=== PATIENT | male | born 1945 | race African-American/Black ===

== ENCOUNTER 2018-04-02 17:11 | Inpatient (IN) | payer MEDICARE, MEDICAID ==
[~2018-04-02] VITALS: Ht 170.2 cm; Wt 73.0 kg
[2018-04-02 21:00] VITALS: BP 140/72
--- NOTE | 2018-04-02 21:00 | NUR ---
NURSE NOTES: Patient direct admit from [facility].Patient A/A/OX4 . patient diagnoses Abdominal pain , R/O small bowel obstruction. this is an elderly 73 yrs old who came to the hospital where he has been with abdominal distention,abdominal pain , mild recurrent nausea and vomiting , has decrease bowel sounds and was to emergency room . the patient also found to have progressively increasing swelling on the left side of the leg patient vss, afibrile . No sob/ no n/v noted at this time .family friend dimas and notified patient location 302 bed 1.Patient personal belongings signed by patient and given to patient. . call light within reach . bed in low position at all times . bed alarm on . will continue to monitor patient .
[2018-04-02 21:01] VITALS: BP 144/85
--- NOTE | 2018-04-02 22:00 | History and Physical Report ---
DATE OF ADMISSION: 04/02/2018 HISTORY OF PRESENT ILLNESS: This is an elderly -aduo-swi male who came to the hospital where he has been with abdominal distention, abdominal pain, mild recurrent nausea and vomiting, has decreased bowel sounds, and was sent to the emergency room. The patient also was found to have progressively increasing swelling on the left side of the leg. He has no fever. No chills. PAST MEDICAL HISTORY: Hypertension, degenerative arthritis, CVA. MEDICATIONS: See the list. ALLERGIES: NKA. FAMILY HISTORY: Noncontributory. SOCIAL HISTORY: Lives at intermediate. Mostly bedbound. REVIEW OF SYSTEMS: Generalized weakness, tired, and fatigue. PHYSICAL EXAMINATION: VITAL SIGNS: His blood pressure is 130/70, pulse 74, and respirations 18. SKIN: Good skin turgor. HEENT: PERRLA. NAD. CHEST: Bilaterally clear. CARDIOVASCULAR: Regular rhythm. No gallop. No murmur. ABDOMEN: Soft. Decreased bowel sounds. Mild tenderness on touch. EXTREMITIES: Left leg swelling. ASSESSMENT: 1. Rule out small-bowel obstruction. 2. Acute gastroenteritis. 3. Leg edema, rule out DVT. 4. CVA. PLAN: We will admit on medical floor. Check KUB. NPO. NG tube suction. Consider GI consult and consider also Surgery consult, and check venous duplex. We will start on Lovenox. Follow up laboratory. Follow up the venous duplex. Sher Conway M.D. DR: Mell JOB#: [id number] CC:
--- NOTE | 2018-04-02 23:47 | NUR ---
NURSE NOTES: called Jonathan Benitez. med recon. NO Answers . will continue to monitor patient .
[2018-04-03] VITALS: BP 147/74
[2018-04-03] MEDS ORDERED: DOCUSATE SODIU100 M2 ORAL (02:20)
[2018-04-03] MEDS ORDERED: MOM30 ML ORAL (02:20)
[2018-04-03] MEDS ORDERED: NOVOLOG100 UNIT/4 SQ (02:20)
[2018-04-03] MEDS ORDERED: NORVASC10 MG ORAL (02:20)
[2018-04-03] MEDS ORDERED: COREG3.125 MG ORAL (02:20)
[2018-04-03] MEDS ORDERED: CLONIDINE1 EAC1 TD (02:20)
[2018-04-03 04:00] VITALS: BP 153/89
[2018-04-03 06:29] LABS: BASOPHILS % (AUTO) 1.1 % (0.0-2.0); EOSINOPHILS % (AUTO) 4.1 % (0.0-3.0); HEMATOCRIT 34.2 % (42.0-52.0); HEMOGLOBIN 11.3 G/DL (14.2-18.0); LYMPHOCYTES % (AUTO) 33.2 % (20.0-45.0); MEAN CORPUSCULAR VOLUME 85 FL (80-99); MONOCYTES % (AUTO) 7.5 % (1.0-10.0); NEUTROPHILS % (AUTO) 54.1 % (45.0-75.0); PLATELET COUNT 156 K/UL (150-450); RED BLOOD COUNT 4.01 M/UL (4.70-6.10); RED CELL DISTRIBUTION WIDTH 14.8 % (11.6-14.8); WHITE BLOOD COUNT 5.2 K/UL (4.8-10.8)
[2018-04-03 06:55] LABS: ALANINE AMINOTRANSFERASE 22 U/L (12-78); ALBUMIN 3.4 G/DL (3.4-5.0); ALBUMIN/GLOBULIN RATIO 0.9 (1.0-2.7); ALKALINE PHOSPHATASE 99 U/L (46-116); ANION GAP 10 mmol/L (5-15); ASPARTATE AMINO TRANSFERASE 15 U/L (15-37); BILIRUBIN,TOTAL 0.4 MG/DL (0.2-1.0); BLOOD UREA NITROGEN 26 mg/dL (7-18); CALCIUM 9.5 MG/DL (8.5-10.1); CARBON DIOXIDE 26 MMOL/L (21-32); CHLORIDE 107 MMOL/L (98-107); POTASSIUM 3.4 MMOL/L (3.5-5.1); SODIUM 143 MMOL/L (136-145)
--- NOTE | 2018-04-03 07:30 | NUR ---
HAND-OFF: Report given to CYNTHIA SHERMAN R.N.AND Endorsed the patient med Recon. Addendum: 04/03/18 at 0839 by RANDELL DOUGLAS LVN Dr. santiago seen patient.
[2018-04-03 08:00] VITALS: BP 160/85
[2018-04-03 08:17] LABS: APPEARANCE,URINE CLOUDY; BILIRUBIN, URINE NEGATIVE (NEGATIVE); COLOR,URINE PALE YELLOW; GLUCOSE, URINE (UA) NEGATIVE (NEGATIVE); KETONES,URINE NEGATIVE (NEGATIVE); LEUKOCYTE ESTERASE ,URINE 3+ (NEGATIVE); NITRITE,URINE NEGATIVE (NEGATIVE); PH,URINE 8 (4.5-8.0); PROTEIN,URINE NEGATIVE (NEGATIVE); UROBILINOGEN,URINE NORMAL MG/DL (0.0-1.0)
[2018-04-03] MEDS ORDERED: Enoxaparin 40mg Inj SUBQ SCH (09:00)
[2018-04-03] MEDS ORDERED: Milk of Magnesia 30ml Ud ORAL PRN (09:15)
--- NOTE | 2018-04-03 09:33 | NUR ---
RADIOLOGY DEPT ABDOMEN X-RAY DONE.-P.DYE
[2018-04-03] MEDS ORDERED: cefTRIAXone 1 GM in D5W 55 ML IVPB SCH (10:00)
--- NOTE | 2018-04-03 11:06 | GI Initial Consult Note ---
History of Present Illness General Date patient seen: Apr 03, 2018 Time patient seen: 11:02 Referring physician: KARLO WILD Reason for Consultation: Small bowel obstruction Present Illness HPI This is an elderly 73-year-old male who came to the hospital where he has been with abdominal distention, abdominal pain, mild recurrent nausea and vomiting, has decreased bowel sounds, and was sent to the emergency room. The patient also was found to have progressively increasing swelling on the left side of the leg. He has no fever. No chills. GI consulted for rule out small bowel obstruction. Patient was seen, awake alert and oriented no apparent distress with no active signs or symptoms of nausea or vomiting. Abdomen was assessed, noted to be very distended and and firm to palpation. According to the patient he has not been able to pass any flatus since yesterday. No documented BM. No noted NGT present. The patient denies any abdominal pain at this time. Labs reviewed noted for normocytic anemia and hypokalemia. Unknown history of endoscopic colonoscopy at this time. Home Meds Reported Medications Magnesium Hydroxide (Milk of Magnesia) 400 Mg/5 Ml Oral.susp, 30 ML ORAL TWICE A DAY, ML 04/03/18 Insulin Aspart (NOVOLOG) 100 Unit/1 Ml Cartridge, 100 UNIT SQ 04/03/18 Docusate Sodium (DOCUSATE SODIUM) 100 Mg Tablet, 250 MG ORAL TWICE A DAY, #60 TAB 0 Refills 04/03/18 Clonidine (CLONIDINE) 1 Each Patch.tdwk, 1 EACH TD, PATCH 04/03/18 Carvedilol (Coreg) 3.125 Mg Tablet, 3.125 MG ORAL EVERY 12 HOURS, TAB 04/03/18 Amlodipine Besylate (Norvasc) 10 Mg Tablet, 10 MG ORAL DAILY, TAB 04/03/18 Med list reviewed/reconciled: Yes Allergies: Coded Allergies: NO KNOWN ALLERGIES (Verified Allergy, Unknown, 04/02/18) Patient History History Provided By: Patient, Medical Record [facility] Narrative PAST MEDICAL HISTORY: Hypertension, degenerative arthritis, CVA. Social History: Denies: smoking, alcohol use, drug use, other Review of Systems All Other Systems: negative except mentioned in HPI Physical Exam Vital Signs Date Time Temp Pulse Resp B/P (MAP) Pulse Ox O2 Delivery O2 Flow Rate FiO2 04/02/18 21:00 Room Air 1/8/19 21:01 98.2 91 18 144/85 (104) 98 Sp02 EP Interpretation: reviewed, normal Labs Laboratory Tests Test 04/03/18 05:20 04/03/18 08:10 White Blood Count 5.2 K/UL (4.8-10.8) Red Blood Count 4.01 M/UL (4.70-6.10) L Hemoglobin 11.3 G/DL (14.2-18.0) L Hematocrit 34.2 % (42.0-52.0) L Mean Corpuscular Volume 85 FL (80-99) Mean Corpuscular Hemoglobin 28.2 PG (27.0-31.0) Mean Corpuscular Hemoglobin Concent 33.0 G/DL (32.0-36.0) Red Cell Distribution Width 14.8 % (11.6-14.8) Platelet Count 156 K/UL (150-450) Mean Platelet Volume 5.5 FL (6.5-10.1) L Neutrophils (%) (Auto) 54.1 % (45.0-75.0) Lymphocytes (%) (Auto) 33.2 % (20.0-45.0) Monocytes (%) (Auto) 7.5 % (1.0-10.0) Eosinophils (%) (Auto) 4.1 % (0.0-3.0) H Basophils (%) (Auto) 1.1 % (0.0-2.0) Sodium Level 143 MMOL/L (136-145) Potassium Level 3.4 MMOL/L (3.5-5.1) L Chloride Level 107 MMOL/L (98-107) Carbon Dioxide Level 26 MMOL/L (21-32) Anion Gap 10 mmol/L (5-15) Blood Urea Nitrogen 26 mg/dL (7-18) H Creatinine 1.0 MG/DL (0.55-1.30) Estimat Glomerular Filtration Rate mL/min (>60) Glucose Level 102 MG/DL (74-106) Hemoglobin A1c 6.2 % (4.3-6.0) H Calcium Level 9.5 MG/DL (8.5-10.1) Total Bilirubin 0.4 MG/DL (0.2-1.0) Aspartate Amino Transf (AST/SGOT) 15 U/L (15-37) Alanine Aminotransferase (ALT/SGPT) 22 U/L (12-78) Alkaline Phosphatase 99 U/L (46-116) Total Protein 7.0 G/DL (6.4-8.2) Albumin 3.4 G/DL (3.4-5.0) Globulin 3.6 g/dL Albumin/Globulin Ratio 0.9 (1.0-2.7) L Lipase 127 U/L (73-393) Urine Color Pale yellow Urine Appearance Cloudy Urine pH 8 (4.5-8.0) Urine Specific [place] 1.010 (1.005-1.035) Urine Protein Negative (NEGATIVE) Urine Glucose (UA) Negative (NEGATIVE) Urine Ketones Negative (NEGATIVE) Urine Blood 1+ (NEGATIVE) H Urine Nitrite Negative (NEGATIVE) Urine Bilirubin Negative (NEGATIVE) Urine Urobilinogen Normal MG/DL (0.0-1.0) Urine Leukocyte Esterase 3+ (NEGATIVE) H Urine RBC 2-4 /HPF (0 - 0) H Urine WBC 20-30 /HPF (0 - 0) H Urine Squamous Epithelial Cells Moderate /LPF (NONE/OCC) H Urine Bacteria Many /HPF (NONE) H General Appearance: well appearing, no apparent distress, alert, thin Head: normocephalic EENT: PERRL/EOMI, normal ENT inspection Neck: supple Respiratory: normal breath sounds, no respiratory distress Cardiovascular: normal rate Gastrointestinal: normal inspection, non tender, soft, normal bowel sounds, non -distended Rectal: deferred Genitourinary: deferred Musculoskeletal: normal inspection, back normal Neurologic: normal inspection, alert, oriented x3, responsive Psychiatric: normal inspection, judgement/insight normal, memory normal Skin: normal inspection, normal color, no rash, warm/dry, palpation normal, well hydrated Lymphatic: normal inspection, no adenopathy Current Medications Current Medications Medications (Trade) Dose Ordered Sig/Wilber Route PRN Reason Start Time Stop Time Status Last Admin Dose Admin Acetaminophen (Tylenol) 650 mg Q4H PRN ORAL Pain Scale (3-5) 04/02/18 21:30 05/02/18 21:29 04/03/18 02:40 Amlodipine Besylate (Norvasc) 10 mg DAILY ORAL 04/03/18 09:15 05/03/18 09:14 04/03/18 09:34 Carvedilol (Coreg) 3.125 mg EVERY 12 HOURS ORAL 04/03/18 09:15 05/03/18 09:14 04/03/18 09:34 Ceftriaxone Sodium 1 gm/ Dextrose 55 ml @ 110 mls/hr Q24H IVPB 04/03/18 10:00 04/10/18 09:59 Dextrose (Dextrose 50%) 25 ml Q30M PRN IV Hypoglycemia 04/03/18 09:00 05/03/18 08:59 Dextrose (Dextrose 50%) 50 ml Q30M PRN IV Hypoglycemia 04/03/18 09:00 05/03/18 08:59 Docusate Sodium (Colace) 250 mg BID ORAL 04/03/18 18:00 05/03/18 17:59 Enoxaparin Sodium (Lovenox) 40 mg Q12HR SUBQ 04/03/18 09:00 05/03/18 08:59 UNV Insulin Aspart (NovoLOG) BEFORE MEALS AND HS SUBQ 04/03/18 11:30 05/03/18 11:29 Magnesium Hydroxide (Mom) 30 ml BID PRN ORAL Constipation 04/03/18 09:15 05/03/18 09:14 Ondansetron HCl (Zofran) 4 mg Q4HR PRN IVP Nausea & Vomiting 04/02/18 21:30 05/02/18 21:29 Potassium Chloride 100 ml @ 110 mls/hr Q1H IVPB 04/03/18 10:00 04/03/18 11:55 04/03/18 09:35 Sodium Chloride 1,000 ml @ 75 mls/hr [id number] IV 04/02/18 21:30 05/02/18 21:29 04/03/18 00:04 GI: Plan Problems: (1) Anemia (2) Small bowel obstruction Plan Small bowel follow-through ordered Maintain n.p.o. plus IV fluids NGT insertion for bowel decompression Obtain surgical consultation We will follow with additional recommendations post imaging study anemia work up OB stool r/o GI bleed monitor H&H, prn transfusions ppi fu labs Discussed with Dr. Bernard. Thank you for this patient referral, we will follow. The patient was seen and examined at bedside and all new and available data was reviewed in the patients chart. I agree with the above findings, impression and plan. (Patient seen earlier today. Signature stamp does not reflect patient encounter time.). - MD Katharine VelasquezMount [facility] LANDSCAPING SUPERVISOR Apr 03, 2018 11:06
--- NOTE | 2018-04-03 12:34 | Diagnostic Imaging Report ---
APPROVED REPORT CPT Code: 74915 Present Symptoms Comments: Screening RIGHT LEG: Venous imaging reveals a patent deep venous system. There is no evidence of thrombus within the femoral, popliteal or tibial segments. The greater saphenous vein is also within normal limits. Doppler indicates normal spontaneous flow within these segments. LEFT LEG: Venous imaging reveals a patent deep venous system. There is no evidence of thrombus within the mid superficial femoral, distal popliteal or tibial segments. Doppler indicates normal spontaneous flow within these segments. The common, proximal superficial femoral and proximal popliteal veins not visualized due to contracture of the left hip and leg.
[2018-04-03] MEDS: NovoLOG Insulin Flexpen SUBQ SCH ×3 (12:36→20:31)
[2018-04-03] MEDS ORDERED: Potassium Chl 10mEq/100ml 110 ML IV SCH (14:00)
--- NOTE | 2018-04-03 14:23 | NUR ---
NURSE NOTES: PER PHARMACY IF PT HAS DVT, THEN LOVENOX 40MG IS TOO LOW OF A DOSE. RN MADE DR. WILD AWARE OF VENOUS DUPLEX RESULTS. MD WITH ORDER TO D/C LOVENOX. RN LEFT MESSAGE IF MD WANTS TO ORDER ANOTHER DVT PROPHYLAXIS, NO ANSWER BACK FROM MD.
[2018-04-03] MEDS: cefTRIAXone 1 GM in D5W 55 ML IVPB SCH (14:36)
[2018-04-03] MEDS ORDERED: Fleet's Mineral Oil Enema RECTAL ONE (14:45)
[2018-04-03] MEDS ORDERED: Isovue-300 100ml vial INJ PRN (15:45)
--- NOTE | 2018-04-03 15:56 | Diagnostic Imaging Report ---
Indication: Abdominal distention Technique: Supine view of the abdomen Comparison: none Findings: The colon is distended and gas-filled, especially distally. Considerable stool is seen in the distal colon and rectum. Considerable stool is also seen in the ascending colon. No definite gaseous distention of small bowel. There is lumbar scoliotic deformity and degenerative spondylosis Impression: Distended gas-filled colon. Suspect on the basis of functional changes or intestinal pseudoobstruction. However, distal obstruction not completely excludable. Consider CT to better assess Prominent feces, particularly distally, fecal impaction possible. Findings previously discussed by phone with GI nurse practitioner Johan Alcantar
[2018-04-03 16:00] VITALS: BP 151/92
--- NOTE | 2018-04-03 16:07 | NUR ---
NURSE NOTES: PER DARLENE (CHANNEL PROCESS SUPERVISOR), CANCEL NGT INSERTION AND ORDER FOR INSERTION OF RECTAL TUBE RECEIVED. ORDER FOR CT A/P WITH CONTRAST. NO NEXT OF KIN AVAILABLE. RN SPOKE TO MANISH AT [facility], AND STATES THEY HAVE NO RECORD OF NEXT OF KIN. RN LEFT MESSAGE FOR FAMILY FRIEND BALTA AND ASKED FOR CALL BACK. DARLENE MADE AWARE OF NO NEXT OF KIN. PER DARLENE, RN TO CALL Keiry WILD AND RECOMMEND SURGERY AND DR CARRILLO ON THE CASE. RN LEFT MESSAGE FOR DR. WILD'S EXCHANGE.
--- NOTE | 2018-04-03 16:12 | NUR ---
NURSE NOTES: RN LEFT MESSAGE FOR DR. CARRILLO REGARDING NEW CONSULT. RN SPOKE TO BALTA (FAMILY FRIEND) WHO STATES PT HAS A SISTER IN [place] AND HAS HER NUMBER AT HOME. PER BALTA, PT'S SISTER HAS NEVER FOLLOWED THROUGH. RN ASKED BALTA TO PLEASE OBTAIN NUMBER FOR SISTER AND CALL US BACK. BALTA STATES SHE WILL. CRN MADE AWARE.
--- NOTE | 2018-04-03 16:55 | NUR ---
NURSE NOTES: DR CARRILLO AT BEDSIDE WITH PT. DR WILD WITH NO NEW ORDER FOR CHANGE IN IVF. RN MADE DR WILD AWARE PT IS DIABETIC, CURRENT BS 127, WILL REMAIN NPO TONIGHT AND CURRENTLY ON 1/2 NS.
--- NOTE | 2018-04-03 17:05 | Consultation ---
History of Present Illness General Date patient seen: Apr 03, 2018 Referring physician: KARLO WILD Reason for Consultation: bowel obstruction Present Illness HPI 73 year old male with multiple medical comorbidities who presented with abdominal distention, pain, nausea, and emesis. on admission noted to have very distended abdomen that was firm. KUB demonstrated bowel dilatation. surgery called to evaluate and assist with care/management. patient seen, chart reviewed, patient examined. looks fairly comfortable without complaints but poor historian. denies pain. currently npo. no n/v/f/c. Allergies: Coded Allergies: NO KNOWN ALLERGIES (Verified Allergy, Unknown, 04/02/18) Medication History Scheduled Amlodipine Besylate (Norvasc), 10 MG ORAL DAILY, (Reported) Carvedilol (Coreg), 3.125 MG ORAL EVERY 12 HOURS, (Reported) Docusate Sodium (Docusate Sodium), 250 MG ORAL TWICE A DAY, (Reported) Magnesium Hydroxide (Milk of Magnesia), 30 ML ORAL TWICE A DAY, (Reported) Miscellaneous Medications Clonidine (Clonidine), 1 EACH TD, (Reported) Insulin Aspart (Novolog), 100 UNIT SQ, (Reported) Patient History Limited by: age History Provided By: Patient, Medical Record, PMD Healthcare decision maker Resuscitation status Full Code Advanced Directive on File Yes Past Medical/Surgical History Past Medical/Surgical History: (1) Anemia (2) Small bowel obstruction Review of Systems All Other Systems: negative except mentioned in HPI Physical Exam General Appearance: no apparent distress, alert Lines, tubes and drains: peripheral HEENT: mucous membranes moist Neck: normal inspection Respiratory/Chest: normal breath sounds, no respiratory distress, no accessory muscle use Cardiovascular/Chest: regular rhythm Abdomen: absent bowel sounds, distended, other Extremities: normal inspection Skin Exam: warm/dry Neurologic: alert Last 24 Hour Vital Signs Date Time Temp Pulse Resp B/P (MAP) Pulse Ox O2 Delivery O2 Flow Rate FiO2 04/03/18 09:34 82 160/85 04/03/18 09:34 82 160/85 04/03/18 09:00 Room Air 04/03/18 08:00 98.0 82 19 160/85 (110) 100 04/03/18 04:00 97.9 83 20 153/89 (110) 100 04/03/18 03:10 98.2 04/03/18 00:00 98.8 85 20 147/74 (98) 97 04/02/18 21:01 98.2 91 18 144/85 (104) 98 04/02/18 21:00 Room Air Intake and Output 04/02/18 04/03/18 19:00 07:00 Intake Total 690 ml Balance 690 ml Intake Oral 240 ml IV Total 450 ml # Voids 4 Laboratory Tests Test 04/03/18 05:20 04/03/18 08:10 White Blood Count 5.2 K/UL (4.8-10.8) Red Blood Count 4.01 M/UL (4.70-6.10) L Hemoglobin 11.3 G/DL (14.2-18.0) L Hematocrit 34.2 % (42.0-52.0) L Mean Corpuscular Volume 85 FL (80-99) Mean Corpuscular Hemoglobin 28.2 PG (27.0-31.0) Mean Corpuscular Hemoglobin Concent 33.0 G/DL (32.0-36.0) Red Cell Distribution Width 14.8 % (11.6-14.8) Platelet Count 156 K/UL (150-450) Mean Platelet Volume 5.5 FL (6.5-10.1) L Neutrophils (%) (Auto) 54.1 % (45.0-75.0) Lymphocytes (%) (Auto) 33.2 % (20.0-45.0) Monocytes (%) (Auto) 7.5 % (1.0-10.0) Eosinophils (%) (Auto) 4.1 % (0.0-3.0) H Basophils (%) (Auto) 1.1 % (0.0-2.0) Sodium Level 143 MMOL/L (136-145) Potassium Level 3.4 MMOL/L (3.5-5.1) L Chloride Level 107 MMOL/L (98-107) Carbon Dioxide Level 26 MMOL/L (21-32) Anion Gap 10 mmol/L (5-15) Blood Urea Nitrogen 26 mg/dL (7-18) H Creatinine 1.0 MG/DL (0.55-1.30) Estimat Glomerular Filtration Rate mL/min (>60) Glucose Level 102 MG/DL (74-106) Hemoglobin A1c 6.2 % (4.3-6.0) H Calcium Level 9.5 MG/DL (8.5-10.1) Total Bilirubin 0.4 MG/DL (0.2-1.0) Aspartate Amino Transf (AST/SGOT) 15 U/L (15-37) Alanine Aminotransferase (ALT/SGPT) 22 U/L (12-78) Alkaline Phosphatase 99 U/L (46-116) Total Protein 7.0 G/DL (6.4-8.2) Albumin 3.4 G/DL (3.4-5.0) Globulin 3.6 g/dL Albumin/Globulin Ratio 0.9 (1.0-2.7) L Lipase 127 U/L (73-393) Urine Color Pale yellow Urine Appearance Cloudy Urine pH 8 (4.5-8.0) Urine Specific [place] 1.010 (1.005-1.035) Urine Protein Negative (NEGATIVE) Urine Glucose (UA) Negative (NEGATIVE) Urine Ketones Negative (NEGATIVE) Urine Blood 1+ (NEGATIVE) H Urine Nitrite Negative (NEGATIVE) Urine Bilirubin Negative (NEGATIVE) Urine Urobilinogen Normal MG/DL (0.0-1.0) Urine Leukocyte Esterase 3+ (NEGATIVE) H Urine RBC 2-4 /HPF (0 - 0) H Urine WBC 20-30 /HPF (0 - 0) H Urine Squamous Epithelial Cells Moderate /LPF (NONE/OCC) H Urine Bacteria Many /HPF (NONE) H Height (Feet): 5 Height (Inches): 7.00 Weight (Pounds): 145 Medications Current Medications Medications (Trade) Dose Ordered Sig/Wilber Route PRN Reason Start Time Stop Time Status Last Admin Dose Admin Acetaminophen (Tylenol) 650 mg Q4H PRN ORAL Pain Scale (3-5) 04/02/18 21:30 05/02/18 21:29 04/03/18 02:40 Amlodipine Besylate (Norvasc) 10 mg DAILY ORAL 04/03/18 09:15 05/03/18 09:14 04/03/18 09:34 Barium Sulfate (Readi-Cat 2) 450 ml NOW PRN ORAL Radiology Procedure 04/03/18 15:15 04/05/18 15:02 Barium Sulfate (Readi-Cat 2) 450 ml NOW PRN ORAL Radiology Procedure 04/03/18 15:45 04/05/18 15:45 Carvedilol (Coreg) 3.125 mg EVERY 12 HOURS ORAL 04/03/18 09:15 05/03/18 09:14 04/03/18 09:34 Ceftriaxone Sodium 1 gm/ Dextrose 55 ml @ 110 mls/hr Q24H IVPB 04/03/18 15:00 04/10/18 14:59 04/03/18 14:36 Dextrose (Dextrose 50%) 25 ml Q30M PRN IV Hypoglycemia 04/03/18 09:00 05/03/18 08:59 Dextrose (Dextrose 50%) 50 ml Q30M PRN IV Hypoglycemia 04/03/18 09:00 05/03/18 08:59 Docusate Sodium (Colace) 250 mg BID ORAL 04/03/18 18:00 05/03/18 17:59 Insulin Aspart (NovoLOG) BEFORE MEALS AND HS SUBQ 04/03/18 11:30 05/03/18 11:29 Iopamidol (Isovue-300 100ml) 100 ml NOW PRN INJ Radiology Procedure 04/03/18 15:45 04/05/18 15:44 Magnesium Hydroxide (Mom) 30 ml BID PRN ORAL Constipation 04/03/18 09:15 05/03/18 09:14 Ondansetron HCl (Zofran) 4 mg Q4HR PRN IVP Nausea & Vomiting 04/02/18 21:30 05/02/18 21:29 Sodium Chloride 1,000 ml @ 75 mls/hr [id number] IV 04/02/18 21:30 05/02/18 21:29 04/03/18 12:32 Assessment/Plan Problem List: (1) Small bowel obstruction Assessment & Plan: 73 year old male with abdominal distention, n/v, abd pain. pain seems to be resolving. still very distended and firm. afebrile, HD stable, no leukocytosis. labs okay KUB noted pending SBFT results -STAT CT A/P -NPO -IV fluids -labs will follow with serial exams. thank you for this consultation. ICD Codes: K56.609 - Unspecified intestinal obstruction, unspecified as to partial versus complete obstruction SNOMED: [id number] Izaiah Cantrell Apr 03, 2018 17:05
[2018-04-03] MEDS ORDERED: Fleet's Enema 133ml RECTAL SCH ×2 (17:15)
--- NOTE | 2018-04-03 17:45 | Progress Note ---
DATE: 04/03/2018 SUBJECTIVE: This is an elderly male who came with abdominal pain. Negative constipation. The patient is going to a test. He is on liquid diet. He also has left leg edema and waiting for venous duplex. OBJECTIVE: GENERAL: He is sitting in the bed, otherwise comfortable. VITAL SIGNS: Blood pressure is 130/70, pulse 74, and respirations 18. SKIN: Good skin turgor. HEENT: NAD. CHEST: Bilaterally clear. CARDIOVASCULAR: Regular rhythm. No gallop. No murmur. ABDOMEN: Soft. Positive bowel sounds. Nontender. EXTREMITIES: Left leg edema. GENITOURINARY: Deferred. ASSESSMENT: 1. Abdominal pain. 2. Abdominal distention, rule out small-bowel obstruction. The patient is waiting for KUB result. 3. Leg edema. Waiting for venous duplex result. We will continue Lovenox. 4. He has UTI. We will continue Rocephin and check labs. 5. Potassium was low. We will replace potassium. Sher Conway M.D. DR: Mell JOB#: [id number] CC:
[2018-04-03] MEDS ORDERED: Docusate 250mg cap ORAL SCH (18:00)
--- NOTE | 2018-04-03 19:43 | NUR ---
HAND-OFF: Report given to Rosa SHAH RN.
--- NOTE | 2018-04-03 19:48 | NUR ---
NURSE NOTES: RN ENDORSED FLAP PRESSER DARLENE'S ORDER TO CONTINUE TO TRY INSERTING RECTAL TUBE. JESSI GARCIA MADE AWARE.
--- NOTE | 2018-04-03 19:50 | NUR ---
NURSE NOTES: patient received. patient in no acute distress at this time. patient complains of no pain at this time. patient awake and alert x4. IV intact patent and asymptomatic. bed in lowest position and locked. bed alarm on. call light within reach. will continue to monitor.
[2018-04-03 20:00] VITALS: BP 148/82
[2018-04-04] VITALS (7 sets, daily range): BP systolic 133–181; BP diastolic 80–112
--- NOTE | 2018-04-04 00:32 | NUR ---
NURSE NOTES: rectal tube inserted at 0030. tube draining and intact.
[2018-04-04] MEDS: NovoLOG Insulin Flexpen SUBQ SCH ×4 (06:30→20:50)
--- NOTE | 2018-04-04 07:05 | NUR ---
HAND-OFF: Report given to ZINA Queen.
[2018-04-04 07:32] LABS: BASOPHILS % (AUTO) 0.6 % (0.0-2.0); EOSINOPHILS % (AUTO) 2.8 % (0.0-3.0); HEMATOCRIT 37.8 % (42.0-52.0); HEMOGLOBIN 12.6 G/DL (14.2-18.0); LYMPHOCYTES % (AUTO) 31.4 % (20.0-45.0); MEAN CORPUSCULAR VOLUME 85 FL (80-99); MONOCYTES % (AUTO) 6.6 % (1.0-10.0); NEUTROPHILS % (AUTO) 58.7 % (45.0-75.0); PLATELET COUNT 185 K/UL (150-450); RED BLOOD COUNT 4.42 M/UL (4.70-6.10); RED CELL DISTRIBUTION WIDTH 15.2 % (11.6-14.8); WHITE BLOOD COUNT 4.1 K/UL (4.8-10.8)
--- NOTE | 2018-04-04 07:33 | NUR ---
NURSE NOTES: Received report from Jennifer. Patient asleep and call light within reach. Will continue to monitor.
[2018-04-04 07:58] LABS: ANION GAP 11 mmol/L (5-15); BLOOD UREA NITROGEN 19 mg/dL (7-18); CALCIUM 9.7 MG/DL (8.5-10.1); CARBON DIOXIDE 28 MMOL/L (21-32); CHLORIDE 106 MMOL/L (98-107); CREATININE 0.9 MG/DL (0.55-1.30); POTASSIUM 3.2 MMOL/L (3.5-5.1); SODIUM 145 MMOL/L (136-145)
--- NOTE | 2018-04-04 08:26 | Diagnostic Imaging Report ---
Indication: Abdominal distention Technique: Patient ingested oral water-soluble contrast, and serial overhead radiographs were obtained Comparison: none Findings: Director Audience Marketing image demonstrates markedly dilated distal colon, distal sigmoid measuring up to 19 cm in diameter. No definite wall thickening. There is questionable dilatation of the rectum by feces. Prominent small bowel mucosal pattern is evident on the chief wheelage clerk image. There is a right hip prosthesis After ingestion of contrast, there is study progression of contrast through the small bowel. The small bowel is nondilated, and mucosal pattern appears unremarkable. Contrast is seen within the colon by 2 hours and 34 minutes. Contrast is seen all the way into the rectum at 5 hours and 45 minutes. Impression: No evidence of small bowel obstruction Markedly distended colon, presumably functional in nature as there is no obstruction to forward progression of ingested contrast. No findings to suggest cecal volvulus. Findings previously discussed with GI nurse practitioner Johan Alcantar. Final images also reviewed in person with Dr. Cantrell
--- NOTE | 2018-04-04 09:17 | Diagnostic Imaging Report ---
Indication: Abdominal distention Technique: Spiral acquisitions obtained through the abdomen and pelvis. No oral contrast utilized, per emergency room physician request No IV contrast utilized, per referring physician request.. Multiplanar reconstructions were generated. Total dose length product 867.87 mGycm. CTDIvol(s) 14.56 mGy. Dose reduction achieved using automated exposure control Comparison: Reference made to small bowel series performed immediately prior Findings: The rectum and distal sigmoid colon are massively dilated, distal sigmoid measuring up to 10 cm in diameter. However, no obstructive lesion is demonstrated and ingested contrast from earlier small bowel series extends all the way to the anal verge. The proximal sigmoid is also dilated, although less so. The transverse colon is mildly dilated, and there is fairly normal caliber of the ascending colon. The cecum is somewhat prominent, however. The appendix is normal. No small bowel distention or small bowel wall thickening. The distal esophagus, stomach, duodenum are unremarkable. No evidence of diverticulosis or diverticulitis. No free or loculated intraperitoneal gas or fluid. No evidence of bowel wall pneumatosis. Lack of IV contrast limits assessment of the solid organs. An unusual structure is seen adjacent to the gallbladder fundus. This may represent a gallbladder fundal stone. However, appearance is somewhat tubular with a focus of central fat, raising the possibility that this represents a focal intussusception of small bowel. No gallbladder wall thickening. The liver is grossly unremarkable. The pancreas, spleen, adrenals, kidneys are all unremarkable. No retroperitoneal or mesenteric mass or adenopathy. No pelvic mass or adenopathy. The bladder is nondistended. There is surgical hardware in the right.. Both hips are contracted, and there is extensive degenerative change of the left hip and acetabulum. There is also deformity of the sacrum and lower lumbar spine. The included lung bases demonstrate very mild interstitial prominence. The heart is enlarged. Impression: Massively dilated distal colon, without evidence of obstructive pathology. Most likely functional in nature Unusual structure apparently adjacent to the gallbladder fundus. Possibly represents a gallbladder fundal stone, but somewhat tubular appearance with central fat raises the possibility that this represents a focal small bowel nonobstructive intussusception. Ultrasound may be useful to clarify Abnormal bilateral hips and pelvis, as described, with contractures, degenerative changes, and right hip surgical hardware Cardiomegaly Mild basilar pulmonary interstitial prominence, suspect on the basis of senescent changes but. Indicate a slight component of interstitial edema This agrees with the preliminary interpretation provided overnight by Dr. Holloway. Findings and recommendations also discussed by phone with Dr. Cantrell at the time of interpretation The CT scanner at [facility] is accredited by the [employer] and the scans are performed using protocols designed to limit radiation exposure to as low as reasonably achievable to attain images of sufficient resolution adequate for diagnostic evaluation.
[2018-04-04] MEDS ORDERED: Nulytely 4L ORAL SCH (10:00)
--- NOTE | 2018-04-04 11:00 | GI Progress Note ---
Assessment/Plan Problems: (1) Colon distention ICD Codes: K63.89 - Other specified diseases of intestine SNOMED: 141415826 (2) Anemia ICD Codes: D64.9 - Anemia, unspecified SNOMED: 089933497 Status: unchanged Status Narrative Discussed with Dr. Bernard Assessment/Plan Abdominal pelvis CT reviewed >> Massively dilated distal colon, without evidence of obstructive pathology. Most likely functional in nature. No noted small bowel obstruction. Will consider colonoscopy for colonic decompression. Maintain rectal tube 2 L GoLYTELY bowel flush Clear liquid diet, advance as tolerated prn transfusions ppi fu labs The patient was seen and examined at bedside and all new and available data was reviewed in the patients chart. I agree with the above findings, impression and plan. (Patient seen earlier today. Signature stamp does not reflect patient encounter time.). - Pineda Bernard MD Subjective Subjective Abdominal distention is improved Denies any abdominal pain States that he had a good bowel movement Objective Last 24 Hour Vital Signs Date Time Temp Pulse Resp B/P (MAP) Pulse Ox O2 Delivery O2 Flow Rate FiO2 04/04/18 10:11 89 181/65 04/04/18 10:11 89 181/65 04/04/18 08:00 98.8 89 20 181/105 (130) 100 04/04/18 04:00 97.7 85 18 180/98 (125) 100 04/04/18 00:00 97.6 91 19 160/89 (112) 100 04/03/18 21:00 Room Air 04/03/18 20:30 82 151/92 04/03/18 20:00 98.3 79 20 148/82 (104) 99 04/03/18 16:00 97.6 82 20 151/92 (111) 97 Intake and Output 04/03/18 04/04/18 18:59 06:59 Intake Total 430 ml 75 ml Output Total 950 ml Balance -520 ml 75 ml IV Total 430 ml 75 ml Output Urine Total 950 ml Laboratory Tests Test 04/04/18 06:15 White Blood Count 4.1 K/UL (4.8-10.8) L Red Blood Count 4.42 M/UL (4.70-6.10) L Hemoglobin 12.6 G/DL (14.2-18.0) L Hematocrit 37.8 % (42.0-52.0) L Mean Corpuscular Volume 85 FL (80-99) Mean Corpuscular Hemoglobin 28.4 PG (27.0-31.0) Mean Corpuscular Hemoglobin Concent 33.3 G/DL (32.0-36.0) Red Cell Distribution Width 15.2 % (11.6-14.8) H Platelet Count 185 K/UL (150-450) Mean Platelet Volume 6.3 FL (6.5-10.1) L Neutrophils (%) (Auto) 58.7 % (45.0-75.0) Lymphocytes (%) (Auto) 31.4 % (20.0-45.0) Monocytes (%) (Auto) 6.6 % (1.0-10.0) Eosinophils (%) (Auto) 2.8 % (0.0-3.0) Basophils (%) (Auto) 0.6 % (0.0-2.0) Sodium Level 145 MMOL/L (136-145) Potassium Level 3.2 MMOL/L (3.5-5.1) L Chloride Level 106 MMOL/L (98-107) Carbon Dioxide Level 28 MMOL/L (21-32) Anion Gap 11 mmol/L (5-15) Blood Urea Nitrogen 19 mg/dL (7-18) H Creatinine 0.9 MG/DL (0.55-1.30) Estimat Glomerular Filtration Rate mL/min (>60) Glucose Level 78 MG/DL (74-106) Calcium Level 9.7 MG/DL (8.5-10.1) Height (Feet): 5 Height (Inches): 7.00 Weight (Pounds): 145 General Appearance: WD/WN, no apparent distress, alert, thin Cardiovascular: normal rate Respiratory/Chest: normal breath sounds, no respiratory distress Abdominal Exam: normal bowel sounds, non tender, soft, distended Extremities: non-tender Ciro Alcantar NP Apr 04, 2018 10:59
--- NOTE | 2018-04-04 12:20 | NUR ---
NURSE NOTES: Potassium 3.2 and notified to GRINDER SET UP OPERATOR Johan. Ordered kcl 40 meq po one time. Noted and carried out.
[2018-04-04] MEDS: cefTRIAXone 1 GM in D5W 55 ML IVPB SCH (15:16)
[2018-04-04] MEDS ORDERED: 1/2 NS 1000ml IV ONE (15:32)
--- NOTE | 2018-04-04 15:57 | General Surgery Progress Note ---
General Surgery-Progress Note Subjective Additional Comments no acute events. CT noted. had BM. comfortable. labs okay. Objective Last 24 Hour Vital Signs Date Time Temp Pulse Resp B/P (MAP) Pulse Ox O2 Delivery O2 Flow Rate FiO2 04/04/18 12:34 169/98 04/04/18 12:00 98.5 83 20 169/98 (121) 100 04/04/18 10:11 89 181/65 04/04/18 10:11 89 181/65 04/04/18 09:00 Room Air 04/04/18 08:00 98.8 89 20 181/105 (130) 100 04/04/18 04:00 97.7 85 18 180/98 (125) 100 04/04/18 00:00 97.6 91 19 160/89 (112) 100 04/03/18 21:00 Room Air 04/03/18 20:30 82 151/92 04/03/18 20:00 98.3 79 20 148/82 (104) 99 04/03/18 16:00 97.6 82 20 151/92 (111) 97 I&O Intake and Output 04/03/18 04/04/18 18:59 06:59 Intake Total 430 ml 75 ml Output Total 950 ml Balance -520 ml 75 ml IV Total 430 ml 75 ml Output Urine Total 950 ml Drains: other Cardiovascular: RSR Respiratory: clear Abdomen: soft, distended, present bowel sounds Extremities: no cyanosis, other Laboratory Tests Test 04/04/18 06:15 White Blood Count 4.1 K/UL (4.8-10.8) L Red Blood Count 4.42 M/UL (4.70-6.10) L Hemoglobin 12.6 G/DL (14.2-18.0) L Hematocrit 37.8 % (42.0-52.0) L Mean Corpuscular Volume 85 FL (80-99) Mean Corpuscular Hemoglobin 28.4 PG (27.0-31.0) Mean Corpuscular Hemoglobin Concent 33.3 G/DL (32.0-36.0) Red Cell Distribution Width 15.2 % (11.6-14.8) H Platelet Count 185 K/UL (150-450) Mean Platelet Volume 6.3 FL (6.5-10.1) L Neutrophils (%) (Auto) 58.7 % (45.0-75.0) Lymphocytes (%) (Auto) 31.4 % (20.0-45.0) Monocytes (%) (Auto) 6.6 % (1.0-10.0) Eosinophils (%) (Auto) 2.8 % (0.0-3.0) Basophils (%) (Auto) 0.6 % (0.0-2.0) Sodium Level 145 MMOL/L (136-145) Potassium Level 3.2 MMOL/L (3.5-5.1) L Chloride Level 106 MMOL/L (98-107) Carbon Dioxide Level 28 MMOL/L (21-32) Anion Gap 11 mmol/L (5-15) Blood Urea Nitrogen 19 mg/dL (7-18) H Creatinine 0.9 MG/DL (0.55-1.30) Estimat Glomerular Filtration Rate mL/min (>60) Glucose Level 78 MG/DL (74-106) Calcium Level 9.7 MG/DL (8.5-10.1) Plan Problems: (1) Small bowel obstruction Assessment & Plan: 73 year old male with abdominal distention, n/v, abd pain. pain seems to be resolving. still very distended and firm. afebrile, HD stable, no leukocytosis. labs okay KUB noted SBFT noted CT noted - Massively dilated distal colon, without evidence of obstructive pathology. Most likely functional in nature Unusual structure apparently adjacent to the gallbladder fundus. Possibly represents a gallbladder fundal stone, but somewhat tubular appearance with central fat raises the possibility that this represents a focal small bowel nonobstructive intussusception. Ultrasound may be useful to clarify -plan for colonoscopic decompression by GI tomorrow -IV fluids -labs will follow with serial exams. thank you for this consultation. Izaiah Cantrell Apr 04, 2018 15:57
--- NOTE | 2018-04-04 18:45 | Progress Note ---
DATE: 04/04/2018 SUBJECTIVE: This is an elderly 73-year-old male, still has abdominal distention, abdominal pain, and looks in mild respiratory distress. No nausea, no vomiting but his stomach is getting bigger. Rectal tube was placed. Discussed with the surgeon. We are monitoring his . We also need to put NG tube, low to intermittent suction. OBJECTIVE: VITAL SIGNS: Blood pressure is 180/98, pulse 85, respiration is 18, and temperature 97.7. HEENT: NAD. NECK: Supple. CHEST: Bilateral crackles. CARDIOVASCULAR: Regular rhythm. No gallop. No murmur. ABDOMEN: Soft, but distended, decreased bowel sounds. EXTREMITIES: CCE. ASSESSMENT: 1. Volvulus. 2. Small bowel obstruction. 3. Uncontrolled high blood pressure. 4. Hypokalemia. 5. The patient is NPO. PLAN: 1. We will continue IV fluid. 2. NG tube suction. 3. Rectal tube. 4. Surgery and GI is on consult. 5. We will also put a lidocaine patch TTS one every week sleep for uncontrolled high blood pressure. 6. Discussed with the patient the option. 7. The patient is critically sick. Sher Conway M.D. DR: Theo JOB#: [id number] CC:
--- NOTE | 2018-04-04 19:40 | NUR ---
NURSE NOTES: Received report from ZINA Omalley and rounds done. Received pt in bed, awake, alert, denies pain, no distress noted. Hargrove and rectal tube to gravity. IV R FA # 22 patent and intact. IV fluid infusing as ordered. Bed in low position and locked, side rails up x 2, call light within reach. Will continue to monitor.
--- NOTE | 2018-04-04 19:40 | NUR ---
NURSE NOTES: Received report from ZINA Omalley and rounds done. Received pt lying in bed, A&OX4, denies any pain. No distress noted. Hargrove catheter in place draining yellow color output. Rectal tube leaking, kept pt clean and dry. Reinflated rectal tube secured. draining without any leakage noted. IV R FA # 20 patent and intact. IV fluid infusing as ordered. Bed in low position and locked, side rails up x 2, call light within reach. Will continue to monitor.
--- NOTE | 2018-04-04 19:54 | NUR ---
HAND-OFF: Report given to Sean Mejia RN.
--- NOTE | 2018-04-04 20:25 | NUR ---
NURSE NOTES: B/P 175/112, HR 98, pt denies any pain, no SOB, no distress noted. Will administer B/P med.
--- NOTE | 2018-04-04 21:44 | NUR ---
NURSE NOTES: Recheck B/P 158/97, HR 83. Pt asymptomatic, denies pain, no SOB, no distress noted. Will continue to monitor.
[2018-04-05] VITALS: BP 160/99
[2018-04-05 04:00] VITALS: BP 149/80
[2018-04-05] MEDS: NovoLOG Insulin Flexpen SUBQ SCH ×4 (06:30→20:55)
--- NOTE | 2018-04-05 07:04 | NUR ---
HAND-OFF: Report given to ZINA Omalley. Pt in stable condition.
[2018-04-05 07:32] LABS: BASOPHILS % (AUTO) 0.9 % (0.0-2.0); EOSINOPHILS % (AUTO) 3.4 % (0.0-3.0); HEMATOCRIT 35.2 % (42.0-52.0); HEMOGLOBIN 11.8 G/DL (14.2-18.0); LYMPHOCYTES % (AUTO) 27.7 % (20.0-45.0); MEAN CORPUSCULAR VOLUME 84 FL (80-99); MONOCYTES % (AUTO) 8.3 % (1.0-10.0); NEUTROPHILS % (AUTO) 59.8 % (45.0-75.0); PLATELET COUNT 175 K/UL (150-450); RED BLOOD COUNT 4.19 M/UL (4.70-6.10); RED CELL DISTRIBUTION WIDTH 14.7 % (11.6-14.8); WHITE BLOOD COUNT 5.1 K/UL (4.8-10.8)
--- NOTE | 2018-04-05 07:34 | NUR ---
NURSE NOTES: Received report from Sean Mejia RN. Patient a/o x 4 and having breakfast. Denies any pain and manzano catheter patent. Call light within reach. Will continue to monitor.
[2018-04-05 07:49] LABS: ANION GAP 11 mmol/L (5-15); BLOOD UREA NITROGEN 15 mg/dL (7-18); CALCIUM 9.3 MG/DL (8.5-10.1); CARBON DIOXIDE 25 MMOL/L (21-32); CHLORIDE 106 MMOL/L (98-107); SODIUM 141 MMOL/L (136-145)
[2018-04-05 07:53] LABS: POTASSIUM 2.7 MMOL/L (3.5-5.1)
[2018-04-05 08:00] VITALS: BP 146/78
--- NOTE | 2018-04-05 09:10 | NUR ---
NURSE NOTES: VOUCHER EXAMINER Johan notified for KCl 2.7 critical value at 0805 am. Ordered KCl 80 meq po one time. Noted and carried out.
--- NOTE | 2018-04-05 11:59 | GI Progress Note ---
Assessment/Plan Problems: (1) Colon distention ICD Codes: K63.89 - Other specified diseases of intestine SNOMED: 026879684 (2) Anemia ICD Codes: D64.9 - Anemia, unspecified SNOMED: 924159429 Status: stable, unchanged Status Narrative Discussed with Dr. Bernard. Assessment/Plan Abdominal pelvis CT reviewed >> Massively dilated distal colon, without evidence of obstructive pathology. Most likely functional in nature. No noted small bowel obstruction. Patient to be scheduled for colonoscopy next sunday for colonic decompression - NPO @ [place] day prior procedure. - hold all blood thinners night prior procedure. Maintain rectal tube electrolyte correction, will adjust IVFs 2 L GoLYTELY bowel flush FLD, advance as tolerated prn transfusions ppi fu labs The patient was seen and examined at bedside and all new and available data was reviewed in the patients chart. I agree with the above findings, impression and plan. (Patient seen earlier today. Signature stamp does not reflect patient encounter time.). - Pineda Bernard MD Subjective Subjective Abdominal distention is improved, but distention still present Denies any abdominal pain States that he had a good bowel movement Objective Last 24 Hour Vital Signs Date Time Temp Pulse Resp B/P (MAP) Pulse Ox O2 Delivery O2 Flow Rate FiO2 04/05/18 09:00 Room Air 04/05/18 08:46 81 146/78 04/05/18 08:46 81 146/78 04/05/18 08:00 97.8 81 18 146/78 (100) 98 04/05/18 04:00 98.1 77 18 149/80 (103) 98 04/05/18 00:00 97.0 84 17 160/99 (119) 99 04/04/18 21:45 83 158/97 (117) 04/04/18 21:00 Room Air 04/04/18 20:27 102 175/112 04/04/18 20:00 97.1 98 19 175/112 (133) 100 04/04/18 16:00 98.2 83 19 150/93 (112) 100 04/04/18 12:34 169/98 04/04/18 12:00 98.5 83 20 169/98 (121) 100 Intake and Output 04/04/18 04/05/18 19:00 07:00 Intake Total 2675 ml 1225 ml Output Total 300 ml 1100 ml Balance 2375 ml 125 ml Intake Oral 2600 ml 400 ml IV Total 75 ml 825 ml Output Urine Total 450 ml Stool Total 300 ml 650 ml # Voids 3 # Bowel Movements 3 Laboratory Tests Test 04/05/18 06:50 White Blood Count 5.1 K/UL (4.8-10.8) Red Blood Count 4.19 M/UL (4.70-6.10) L Hemoglobin 11.8 G/DL (14.2-18.0) L Hematocrit 35.2 % (42.0-52.0) L Mean Corpuscular Volume 84 FL (80-99) Mean Corpuscular Hemoglobin 28.2 PG (27.0-31.0) Mean Corpuscular Hemoglobin Concent 33.6 G/DL (32.0-36.0) Red Cell Distribution Width 14.7 % (11.6-14.8) Platelet Count 175 K/UL (150-450) Mean Platelet Volume 6.4 FL (6.5-10.1) L Neutrophils (%) (Auto) 59.8 % (45.0-75.0) Lymphocytes (%) (Auto) 27.7 % (20.0-45.0) Monocytes (%) (Auto) 8.3 % (1.0-10.0) Eosinophils (%) (Auto) 3.4 % (0.0-3.0) H Basophils (%) (Auto) 0.9 % (0.0-2.0) Sodium Level 141 MMOL/L (136-145) Potassium Level 2.7 MMOL/L (3.5-5.1) *L Chloride Level 106 MMOL/L (98-107) Carbon Dioxide Level 25 MMOL/L (21-32) Anion Gap 11 mmol/L (5-15) Blood Urea Nitrogen 15 mg/dL (7-18) Creatinine 1.0 MG/DL (0.55-1.30) Estimat Glomerular Filtration Rate mL/min (>60) Glucose Level 91 MG/DL (74-106) Calcium Level 9.3 MG/DL (8.5-10.1) Height (Feet): 5 Height (Inches): 7.00 Weight (Pounds): 145 General Appearance: WD/WN, no apparent distress, alert Cardiovascular: normal rate Respiratory/Chest: normal breath sounds, no respiratory distress Abdominal Exam: normal bowel sounds, non tender, soft, other Genitourinary/Rectal: other - rectal tube Extremities: non-tender Ciro Alcantar NP Apr 05, 2018 11:59
[2018-04-05 12:00] VITALS: BP 144/72
--- NOTE | 2018-04-05 12:15 | General Surgery Progress Note ---
General Surgery-Progress Note Subjective Additional Comments no acute events. distended. no pain. non tender. rectal tube with loose stool Objective Last 24 Hour Vital Signs Date Time Temp Pulse Resp B/P (MAP) Pulse Ox O2 Delivery O2 Flow Rate FiO2 04/05/18 09:00 Room Air 04/05/18 08:46 81 146/78 04/05/18 08:46 81 146/78 04/05/18 08:00 97.8 81 18 146/78 (100) 98 04/05/18 04:00 98.1 77 18 149/80 (103) 98 04/05/18 00:00 97.0 84 17 160/99 (119) 99 04/04/18 21:45 83 158/97 (117) 04/04/18 21:00 Room Air 04/04/18 20:27 102 175/112 04/04/18 20:00 97.1 98 19 175/112 (133) 100 04/04/18 16:00 98.2 83 19 150/93 (112) 100 04/04/18 12:34 169/98 I&O Intake and Output 04/04/18 04/05/18 19:00 07:00 Intake Total 2675 ml 1225 ml Output Total 300 ml 1100 ml Balance 2375 ml 125 ml Intake Oral 2600 ml 400 ml IV Total 75 ml 825 ml Output Urine Total 450 ml Stool Total 300 ml 650 ml # Voids 3 # Bowel Movements 3 Drains: none Cardiovascular: RSR Respiratory: clear Abdomen: soft, distended, absent bowel sounds Extremities: other Laboratory Tests Test 04/05/18 06:50 White Blood Count 5.1 K/UL (4.8-10.8) Red Blood Count 4.19 M/UL (4.70-6.10) L Hemoglobin 11.8 G/DL (14.2-18.0) L Hematocrit 35.2 % (42.0-52.0) L Mean Corpuscular Volume 84 FL (80-99) Mean Corpuscular Hemoglobin 28.2 PG (27.0-31.0) Mean Corpuscular Hemoglobin Concent 33.6 G/DL (32.0-36.0) Red Cell Distribution Width 14.7 % (11.6-14.8) Platelet Count 175 K/UL (150-450) Mean Platelet Volume 6.4 FL (6.5-10.1) L Neutrophils (%) (Auto) 59.8 % (45.0-75.0) Lymphocytes (%) (Auto) 27.7 % (20.0-45.0) Monocytes (%) (Auto) 8.3 % (1.0-10.0) Eosinophils (%) (Auto) 3.4 % (0.0-3.0) H Basophils (%) (Auto) 0.9 % (0.0-2.0) Sodium Level 141 MMOL/L (136-145) Potassium Level 2.7 MMOL/L (3.5-5.1) *L Chloride Level 106 MMOL/L (98-107) Carbon Dioxide Level 25 MMOL/L (21-32) Anion Gap 11 mmol/L (5-15) Blood Urea Nitrogen 15 mg/dL (7-18) Creatinine 1.0 MG/DL (0.55-1.30) Estimat Glomerular Filtration Rate mL/min (>60) Glucose Level 91 MG/DL (74-106) Calcium Level 9.3 MG/DL (8.5-10.1) Plan Problems: (1) Small bowel obstruction Assessment & Plan: 73 year old male with abdominal distention, n/v, abd pain. pain seems to be resolving. still very distended and firm. afebrile, HD stable, no leukocytosis. labs okay KUB noted SBFT noted CT noted - Massively dilated distal colon, without evidence of obstructive pathology. Most likely functional in nature Unusual structure apparently adjacent to the gallbladder fundus. Possibly represents a gallbladder fundal stone, but somewhat tubular appearance with central fat raises the possibility that this represents a focal small bowel nonobstructive intussusception. Ultrasound may be useful to clarify -plan for colonoscopic decompression by GI -IV fluids -labs will follow with serial exams. thank you for this consultation. Izaiah Cantrell Apr 05, 2018 12:15
--- NOTE | 2018-04-05 12:30 | NUR ---
NURSE NOTES: Notified CHAR FILTER OPERATOR Johan regarding colonoscopy consent because no one can sign for the consent besides patient. Patient is confused. CHAR FILTER OPERATOR Johan mentioned that will do psy consult to see if patient has capacity.
--- NOTE | 2018-04-05 13:41 | GI Progress Note ---
Assessment/Plan Problems: (1) Colon distention ICD Codes: K63.89 - Other specified diseases of intestine SNOMED: 418462581 (2) Anemia ICD Codes: D64.9 - Anemia, unspecified SNOMED: 536223688 Status: stable Status Narrative Discussed with Dr. Bernard. Assessment/Plan Abdominal pelvis CT reviewed >> Massively dilated distal colon, without evidence of obstructive pathology. Most likely functional in nature. No noted small bowel obstruction. Patient to be scheduled for colonoscopy next sunday for colonic decompression - NPO @ [place] day prior procedure. - hold all blood thinners night prior procedure. - unable to obtain consent, [facility] contacted noted that patient has no family member. patient will need evaluation for capacity. Maintain rectal tube electrolyte correction, will adjust IVFs FLD, advance as tolerated prn transfusions ppi fu labs The patient was seen and examined at bedside and all new and available data was reviewed in the patients chart. I agree with the above findings, impression and plan. (Patient seen earlier today. Signature stamp does not reflect patient encounter time.). - Pineda Bernard MD Subjective Subjective Abdominal distention is improved, but distention still present Denies any abdominal pain States that he had a good bowel movement Objective Last 24 Hour Vital Signs Date Time Temp Pulse Resp B/P (MAP) Pulse Ox O2 Delivery O2 Flow Rate FiO2 04/05/18 12:00 97.8 79 18 144/72 (96) 96 04/05/18 09:00 Room Air 04/05/18 08:46 81 146/78 04/05/18 08:46 81 146/78 04/05/18 08:00 97.8 81 18 146/78 (100) 98 04/05/18 04:00 98.1 77 18 149/80 (103) 98 04/05/18 00:00 97.0 84 17 160/99 (119) 99 04/04/18 21:45 83 158/97 (117) 04/04/18 21:00 Room Air 04/04/18 20:27 102 175/112 04/04/18 20:00 97.1 98 19 175/112 (133) 100 04/04/18 16:00 98.2 83 19 150/93 (112) 100 Intake and Output 04/04/18 04/05/18 19:00 07:00 Intake Total 2675 ml 1225 ml Output Total 300 ml 1100 ml Balance 2375 ml 125 ml Intake Oral 2600 ml 400 ml IV Total 75 ml 825 ml Output Urine Total 450 ml Stool Total 300 ml 650 ml # Voids 3 # Bowel Movements 3 Laboratory Tests Test 04/05/18 06:50 White Blood Count 5.1 K/UL (4.8-10.8) Red Blood Count 4.19 M/UL (4.70-6.10) L Hemoglobin 11.8 G/DL (14.2-18.0) L Hematocrit 35.2 % (42.0-52.0) L Mean Corpuscular Volume 84 FL (80-99) Mean Corpuscular Hemoglobin 28.2 PG (27.0-31.0) Mean Corpuscular Hemoglobin Concent 33.6 G/DL (32.0-36.0) Red Cell Distribution Width 14.7 % (11.6-14.8) Platelet Count 175 K/UL (150-450) Mean Platelet Volume 6.4 FL (6.5-10.1) L Neutrophils (%) (Auto) 59.8 % (45.0-75.0) Lymphocytes (%) (Auto) 27.7 % (20.0-45.0) Monocytes (%) (Auto) 8.3 % (1.0-10.0) Eosinophils (%) (Auto) 3.4 % (0.0-3.0) H Basophils (%) (Auto) 0.9 % (0.0-2.0) Sodium Level 141 MMOL/L (136-145) Potassium Level 2.7 MMOL/L (3.5-5.1) *L Chloride Level 106 MMOL/L (98-107) Carbon Dioxide Level 25 MMOL/L (21-32) Anion Gap 11 mmol/L (5-15) Blood Urea Nitrogen 15 mg/dL (7-18) Creatinine 1.0 MG/DL (0.55-1.30) Estimat Glomerular Filtration Rate mL/min (>60) Glucose Level 91 MG/DL (74-106) Calcium Level 9.3 MG/DL (8.5-10.1) Height (Feet): 5 Height (Inches): 7.00 Weight (Pounds): 145 Ciro Alcantar PRODUCTION WELDING SUPERVISOR Apr 05, 2018 13:41
[2018-04-05] MEDS: Heparin 5000 units/ml inj SUBQ SCH ×2 (15:16→22:10)
[2018-04-05] MEDS: cefTRIAXone 1 GM in D5W 55 ML IVPB SCH (15:19)
[2018-04-05 16:00] VITALS: BP 133/67
--- NOTE | 2018-04-05 16:04 | Consultation ---
History of Present Illness General Referring physician: KARLO WILD Reason for Consultation: bowel obstruction Present Illness Allergies: Coded Allergies: NO KNOWN ALLERGIES (Verified Allergy, Unknown, 04/02/18) Medication History Scheduled Amlodipine Besylate (Norvasc), 10 MG ORAL DAILY, (Reported) Carvedilol (Coreg), 3.125 MG ORAL EVERY 12 HOURS, (Reported) Docusate Sodium (Docusate Sodium), 250 MG ORAL TWICE A DAY, (Reported) Magnesium Hydroxide (Milk of Magnesia), 30 ML ORAL TWICE A DAY, (Reported) Miscellaneous Medications Clonidine (Clonidine), 1 EACH TD, (Reported) Insulin Aspart (Novolog), 100 UNIT SQ, (Reported) Patient History Healthcare decision maker Resuscitation status Full Code Advanced Directive on File Yes Physical Exam Last 24 Hour Vital Signs Date Time Temp Pulse Resp B/P (MAP) Pulse Ox O2 Delivery O2 Flow Rate FiO2 04/05/18 12:00 97.8 79 18 144/72 (96) 96 04/05/18 09:00 Room Air 04/05/18 08:46 81 146/78 04/05/18 08:46 81 146/78 04/05/18 08:00 97.8 81 18 146/78 (100) 98 04/05/18 04:00 98.1 77 18 149/80 (103) 98 04/05/18 00:00 97.0 84 17 160/99 (119) 99 04/04/18 21:45 83 158/97 (117) 04/04/18 21:00 Room Air 04/04/18 20:27 102 175/112 04/04/18 20:00 97.1 98 19 175/112 (133) 100 Intake and Output 04/04/18 04/05/18 18:59 06:59 Intake Total 2600 ml 1300 ml Output Total 300 ml 1100 ml Balance 2300 ml 200 ml Intake Oral 2600 ml 400 ml IV Total 900 ml Output Urine Total 450 ml Stool Total 300 ml 650 ml # Voids 3 # Bowel Movements 3 Laboratory Tests Test 04/05/18 06:50 White Blood Count 5.1 K/UL (4.8-10.8) Red Blood Count 4.19 M/UL (4.70-6.10) L Hemoglobin 11.8 G/DL (14.2-18.0) L Hematocrit 35.2 % (42.0-52.0) L Mean Corpuscular Volume 84 FL (80-99) Mean Corpuscular Hemoglobin 28.2 PG (27.0-31.0) Mean Corpuscular Hemoglobin Concent 33.6 G/DL (32.0-36.0) Red Cell Distribution Width 14.7 % (11.6-14.8) Platelet Count 175 K/UL (150-450) Mean Platelet Volume 6.4 FL (6.5-10.1) L Neutrophils (%) (Auto) 59.8 % (45.0-75.0) Lymphocytes (%) (Auto) 27.7 % (20.0-45.0) Monocytes (%) (Auto) 8.3 % (1.0-10.0) Eosinophils (%) (Auto) 3.4 % (0.0-3.0) H Basophils (%) (Auto) 0.9 % (0.0-2.0) Sodium Level 141 MMOL/L (136-145) Potassium Level 2.7 MMOL/L (3.5-5.1) *L Chloride Level 106 MMOL/L (98-107) Carbon Dioxide Level 25 MMOL/L (21-32) Anion Gap 11 mmol/L (5-15) Blood Urea Nitrogen 15 mg/dL (7-18) Creatinine 1.0 MG/DL (0.55-1.30) Estimat Glomerular Filtration Rate mL/min (>60) Glucose Level 91 MG/DL (74-106) Calcium Level 9.3 MG/DL (8.5-10.1) Height (Feet): 5 Height (Inches): 7.00 Weight (Pounds): 145 Medications Current Medications Medications (Trade) Dose Ordered Sig/Wilber Route PRN Reason Start Time Stop Time Status Last Admin Dose Admin Acetaminophen (Tylenol) 650 mg Q4H PRN ORAL Pain Scale (3-5) 04/02/18 21:30 05/02/18 21:29 04/03/18 17:54 Amlodipine Besylate (Norvasc) 10 mg DAILY ORAL 04/03/18 09:15 05/03/18 09:14 04/05/18 08:46 Carvedilol (Coreg) 3.125 mg EVERY 12 HOURS ORAL 04/03/18 09:15 05/03/18 09:14 04/05/18 08:46 Ceftriaxone Sodium 1 gm/ Dextrose 55 ml @ 110 mls/hr Q24H IVPB 04/03/18 15:00 04/10/18 14:59 04/05/18 15:19 Clonidine HCl (Catapres TTS-1) 1 patch QWEEK TDERMAL 04/04/18 11:00 05/04/18 10:59 04/04/18 12:34 Dextrose (Dextrose 50%) 25 ml Q30M PRN IV Hypoglycemia 04/03/18 09:00 05/03/18 08:59 Dextrose (Dextrose 50%) 50 ml Q30M PRN IV Hypoglycemia 04/03/18 09:00 05/03/18 08:59 Heparin Sodium (Porcine) (Heparin 5000 units/ml) 5,000 units EVERY 8 HOURS SUBQ 04/05/18 14:00 05/05/18 13:59 04/05/18 15:16 Insulin Aspart (NovoLOG) BEFORE MEALS AND HS SUBQ 04/03/18 11:30 05/03/18 11:29 04/05/18 12:10 Magnesium Hydroxide (Mom) 30 ml BID PRN ORAL Constipation 04/03/18 09:15 05/03/18 09:14 Ondansetron HCl (Zofran) 4 mg Q4HR PRN IVP Nausea & Vomiting 04/02/18 21:30 05/02/18 21:29 Polyethylene Glycol/ Electrolytes (Nulytely) 4,000 ml ONCE ORAL 04/07/18 16:00 04/07/18 23:59 Sodium 1,000 ml @ 75 mls/hr [id number] IV 04/06/18 08:00 05/06/18 07:59 Sodium Chloride 1,000 ml @ 75 mls/hr [id number] IV 04/02/18 21:30 05/02/18 21:29 04/05/18 15:15 Alvino Rizo MD Apr 05, 2018 16:04
--- NOTE | 2018-04-05 16:07 | NUR ---
NURSE NOTES: Dr. Conawy saw the patient and ordered. 1. Tylenol 650 mg q4 prn 2. Gabapentin 300mg BID po Noted and carried out.
--- NOTE | 2018-04-05 19:30 | NUR ---
NURSE NOTES: Recieved patient in bed, awake, oriented to his name, intermittent confusion, in no acute distress at this time, patient is bed bound, on RA, full liquid diet, lower extremities contracture. Bed is in low position, locked and alarm is on, call light is within reach, will continue to monitor for safety and comfort.
--- NOTE | 2018-04-05 19:30 | Progress Note ---
DATE: 04/05/2018 ADDENDUM Liquid bowel movement. PHYSICAL EXAMINATION: VITAL SIGNS: Blood pressure is 133/67, pulse 68, and no fever. CHEST: Bilaterally clear. CARDIOVASCULAR: Regular rhythm. ABDOMEN: Distended. Decreased bowel sound. EXTREMITIES: CCE. LABORATORY AND DIAGNOSTIC DATA: White counts are 5.1 and hemoglobin 12. Chemistry panel, potassium 2.7. ASSESSMENT: 1. Small bowel obstruction. 2. Hypokalemia. 3. Volvulus. 4. Pain in the leg. We will add Neurontin as well as Tylenol. Continue liquid diet. Continue pain medicine and . Sher Conway M.D. DR: ALBERT JOB#: [id number] CC:
--- NOTE | 2018-04-05 19:50 | NUR ---
HAND-OFF: Report given to Genna.
[2018-04-05 20:39] VITALS: BP 144/81
[2018-04-06] VITALS: BP 140/77
[2018-04-06 04:52] VITALS: BP 144/88
[2018-04-06] MEDS: NovoLOG Insulin Flexpen SUBQ SCH ×4 (06:21→21:49)
[2018-04-06] MEDS: Heparin 5000 units/ml inj SUBQ SCH ×3 (06:23→21:47)
[2018-04-06 07:32] LABS: BASOPHILS % (AUTO) 0.9 % (0.0-2.0); EOSINOPHILS % (AUTO) 2.8 % (0.0-3.0); HEMATOCRIT 36.5 % (42.0-52.0); HEMOGLOBIN 12.3 G/DL (14.2-18.0); MEAN CORPUSCULAR VOLUME 85 FL (80-99); MONOCYTES % (AUTO) 6.5 % (1.0-10.0); NEUTROPHILS % (AUTO) 56.9 % (45.0-75.0); PLATELET COUNT 169 K/UL (150-450); RED BLOOD COUNT 4.32 M/UL (4.70-6.10); RED CELL DISTRIBUTION WIDTH 14.4 % (11.6-14.8); WHITE BLOOD COUNT 4.3 K/UL (4.8-10.8)
--- NOTE | 2018-04-06 07:36 | NUR ---
HAND-OFF: Report given to Carlos IZAGUIRRE.
--- NOTE | 2018-04-06 07:41 | NUR ---
NURSE NOTES: Received pt from ZINA Vail, pt was sleeping, no acute distress, F/C and rectal tube in place, call light w/in reach.
[2018-04-06 07:54] LABS: ANION GAP 12 mmol/L (5-15); BLOOD UREA NITROGEN 10 mg/dL (7-18); CALCIUM 9.7 MG/DL (8.5-10.1); CARBON DIOXIDE 25 MMOL/L (21-32); CHLORIDE 104 MMOL/L (98-107); PHOSPHORUS 3.2 MG/DL (2.5-4.9); POTASSIUM 2.9 MMOL/L (3.5-5.1); SODIUM 141 MMOL/L (136-145)
[2018-04-06 08:00] VITALS: BP 168/95
[2018-04-06] MEDS: 1/2NS w/KCl 20mEq 1000ml 1,000 ML IV SCH ×3 (08:00→21:44)
[2018-04-06] MEDS ORDERED: 1/2 NS 1000ml IV ONE (10:38)
[2018-04-06 12:00] VITALS: BP 134/87
--- NOTE | 2018-04-06 14:45 | General Surgery Progress Note ---
General Surgery-Progress Note Subjective Additional Comments no acute events. abd distended. still with stool in tube. stable. Objective Last 24 Hour Vital Signs Date Time Temp Pulse Resp B/P (MAP) Pulse Ox O2 Delivery O2 Flow Rate FiO2 04/06/18 10:29 81 168/95 04/06/18 10:28 81 168/95 04/06/18 08:14 Room Air 04/06/18 08:00 98.3 81 19 168/95 (119) 100 04/06/18 04:52 98.1 77 19 144/88 (106) 98 04/06/18 00:00 98.4 74 17 140/77 (98) 04/05/18 21:00 Room Air 04/05/18 20:53 78 144/81 04/05/18 20:39 98.6 78 18 144/81 (102) 04/05/18 16:00 97.6 68 18 133/67 (89) 97 I&O Intake and Output 04/05/18 04/06/18 19:00 07:00 Intake Total 1030 ml 950 ml Output Total 1500 ml 1700 ml Balance -470 ml -750 ml Intake Oral 955 ml IV Total 75 ml 750 ml Other 200 ml Output Urine Total 900 ml 1700 ml Stool Total 600 ml Drains: other Cardiovascular: RSR Respiratory: clear Abdomen: soft, distended, absent bowel sounds Extremities: other Laboratory Tests Test 04/06/18 06:40 White Blood Count 4.3 K/UL (4.8-10.8) L Red Blood Count 4.32 M/UL (4.70-6.10) L Hemoglobin 12.3 G/DL (14.2-18.0) L Hematocrit 36.5 % (42.0-52.0) L Mean Corpuscular Volume 85 FL (80-99) Mean Corpuscular Hemoglobin 28.3 PG (27.0-31.0) Mean Corpuscular Hemoglobin Concent 33.5 G/DL (32.0-36.0) Red Cell Distribution Width 14.4 % (11.6-14.8) Platelet Count 169 K/UL (150-450) Mean Platelet Volume 5.5 FL (6.5-10.1) L Neutrophils (%) (Auto) 56.9 % (45.0-75.0) Lymphocytes (%) (Auto) 33.0 % (20.0-45.0) Monocytes (%) (Auto) 6.5 % (1.0-10.0) Eosinophils (%) (Auto) 2.8 % (0.0-3.0) Basophils (%) (Auto) 0.9 % (0.0-2.0) Sodium Level 141 MMOL/L (136-145) Potassium Level 2.9 MMOL/L (3.5-5.1) L Chloride Level 104 MMOL/L (98-107) Carbon Dioxide Level 25 MMOL/L (21-32) Anion Gap 12 mmol/L (5-15) Blood Urea Nitrogen 10 mg/dL (7-18) Creatinine 1.0 MG/DL (0.55-1.30) Estimat Glomerular Filtration Rate mL/min (>60) Glucose Level 89 MG/DL (74-106) Calcium Level 9.7 MG/DL (8.5-10.1) Phosphorus Level 3.2 MG/DL (2.5-4.9) Magnesium Level 1.6 MG/DL (1.8-2.4) L Plan Problems: (1) Small bowel obstruction Assessment & Plan: 73 year old male with abdominal distention, n/v, abd pain. pain seems to be resolving. still very distended and firm. afebrile, HD stable, no leukocytosis. labs okay KUB noted SBFT noted CT noted - Massively dilated distal colon, without evidence of obstructive pathology. Most likely functional in nature Unusual structure apparently adjacent to the gallbladder fundus. Possibly represents a gallbladder fundal stone, but somewhat tubular appearance with central fat raises the possibility that this represents a focal small bowel nonobstructive intussusception. Ultrasound may be useful to clarify -plan for colonoscopic decompression by GI sunday -IV fluids -labs will follow with serial exams. thank you for this consultation. Izaiah Cantrell Apr 06, 2018 14:45
[2018-04-06 16:00] VITALS: BP 144/86
[2018-04-06] MEDS: cefTRIAXone 1 GM in D5W 55 ML IVPB SCH (16:02)
--- NOTE | 2018-04-06 17:00 | NUR ---
NURSE NOTES: noted pt has Left side of knee open wound. will endorse to next shift
--- NOTE | 2018-04-06 19:40 | NUR ---
NURSE NOTES:Patient received from Carlos Vasquez . Patient in bed . no s/s of distress . manzano cath draining yellow urine and rectal tube in placed . patient turned and repositioned . patient noticed skin tear in left knee when received. Carlos Vasquez Notified and aware.states she's take a photo and cover the wound with gauze and paper tape the left knee .Agusto franklin notified and aware. will monitor patient .
[2018-04-06 20:00] VITALS: BP 140/84
--- NOTE | 2018-04-06 20:00 | Progress Note ---
DATE: 04/06/2018 SUBJECTIVE: This is an elderly male, currently in the bed, has a lot of watery stool, but his stomach still looks very big, but the patient is tolerating diet. OBJECTIVE: VITAL SIGNS: Blood pressure is 144/88, pulse 77, respirations 19, and temperature 98.1. HEENT: NAD. CHEST: Bilaterally clear. CARDIOVASCULAR: Regular rhythm. No gallop. No murmur. ABDOMEN: Distended. Mild tenderness. Minimum bowel sounds. EXTREMITIES: No CCE. NEUROLOGIC: generalized weakness. LABORATORY DATA: White counts are 4.3, hemoglobin 12. Chemistry panel, sodium 141, potassium 2.9, BUN 10, creatinine 1.0. ASSESSMENT AND PLAN: Hypokalemia. We will replace the potassium. Continue soft diet. GI is on the case. The patient is going to for colonoscopy on Sunday. Sher Conway M.D. DR: EUGENIO JOB#: [id number] CC:
--- NOTE | 2018-04-06 20:13 | General Progress Note ---
Assessment/Plan Assessment/Plan Assessment - colonic dilation - anemia Recommendation - Clears - GI prep - Colonoscopy with decompression Sunday - correct electrolytes Subjective Allergies: Coded Allergies: NO KNOWN ALLERGIES (Verified Allergy, Unknown, 04/02/18) Subjective above noted patient confused (+) rectal tube with some liquid on clears Objective Last 24 Hour Vital Signs Date Time Temp Pulse Resp B/P (MAP) Pulse Ox O2 Delivery O2 Flow Rate FiO2 04/06/18 16:00 98.1 80 17 144/86 (105) 100 04/06/18 12:00 98.4 80 19 134/87 (103) 100 04/06/18 10:29 81 168/95 04/06/18 10:28 81 168/95 04/06/18 08:14 Room Air 04/06/18 08:00 98.3 81 19 168/95 (119) 100 04/06/18 04:52 98.1 77 19 144/88 (106) 98 04/06/18 00:00 98.4 74 17 140/77 (98) 04/05/18 21:00 Room Air 04/05/18 20:53 78 144/81 04/05/18 20:39 98.6 78 18 144/81 (102) Intake and Output 04/05/18 04/06/18 18:59 06:59 Intake Total 955 ml 1025 ml Output Total 1500 ml 1700 ml Balance -545 ml -675 ml Intake Oral 955 ml IV Total 825 ml Other 200 ml Output Urine Total 900 ml 1700 ml Stool Total 600 ml Laboratory Tests 04/06/18 06:40: White Blood Count 4.3L, Red Blood Count 4.32L, Hemoglobin 12.3L, Hematocrit 36.5L, Mean Corpuscular Volume 85, Mean Corpuscular Hemoglobin 28.3, Mean Corpuscular Hemoglobin Concent 33.5, Red Cell Distribution Width 14.4, Platelet Count 169, Mean Platelet Volume 5.5L, Neutrophils (%) (Auto) 56.9, Lymphocytes ( %) (Auto) 33.0, Monocytes (%) (Auto) 6.5, Eosinophils (%) (Auto) 2.8, Basophils (%) (Auto) 0.9, Sodium Level 141, Potassium Level 2.9L, Chloride Level 104, Carbon Dioxide Level 25, Anion Gap 12, Blood Urea Nitrogen 10, Creatinine 1.0, Estimat Glomerular Filtration Rate , Glucose Level 89, Calcium Level 9.7, Phosphorus Level 3.2, Magnesium Level 1.6L Height (Feet): 5 Height (Inches): 7.00 Weight (Pounds): 145 Objective WDWN NCAT supple CTA RR abd very distended, tympanitic (+) (R) Arben Haile MD Apr 06, 2018 20:13
--- NOTE | 2018-04-06 20:27 | NUR ---
HAND-OFF: Report given to Deena, BUSHING AND BROACH OPERATOR, pt is stable condition.
--- NOTE | 2018-04-06 23:37 | General Progress Note ---
Subjective Allergies: Coded Allergies: NO KNOWN ALLERGIES (Verified Allergy, Unknown, 04/02/18) Objective Last 24 Hour Vital Signs Date Time Temp Pulse Resp B/P (MAP) Pulse Ox O2 Delivery O2 Flow Rate FiO2 04/06/18 21:43 78 117/76 04/06/18 21:00 Room Air 04/06/18 16:00 98.1 80 17 144/86 (105) 100 04/06/18 12:00 98.4 80 19 134/87 (103) 100 04/06/18 10:29 81 168/95 04/06/18 10:28 81 168/95 04/06/18 08:14 Room Air 04/06/18 08:00 98.3 81 19 168/95 (119) 100 04/06/18 04:52 98.1 77 19 144/88 (106) 98 04/06/18 00:00 98.4 74 17 140/77 (98) Intake and Output 04/05/18 04/06/18 18:59 06:59 Intake Total 955 ml 1025 ml Output Total 1500 ml 1700 ml Balance -545 ml -675 ml Intake Oral 955 ml IV Total 825 ml Other 200 ml Output Urine Total 900 ml 1700 ml Stool Total 600 ml Laboratory Tests 04/06/18 06:40: White Blood Count 4.3L, Red Blood Count 4.32L, Hemoglobin 12.3L, Hematocrit 36.5L, Mean Corpuscular Volume 85, Mean Corpuscular Hemoglobin 28.3, Mean Corpuscular Hemoglobin Concent 33.5, Red Cell Distribution Width 14.4, Platelet Count 169, Mean Platelet Volume 5.5L, Neutrophils (%) (Auto) 56.9, Lymphocytes ( %) (Auto) 33.0, Monocytes (%) (Auto) 6.5, Eosinophils (%) (Auto) 2.8, Basophils (%) (Auto) 0.9, Sodium Level 141, Potassium Level 2.9L, Chloride Level 104, Carbon Dioxide Level 25, Anion Gap 12, Blood Urea Nitrogen 10, Creatinine 1.0, Estimat Glomerular Filtration Rate , Glucose Level 89, Calcium Level 9.7, Phosphorus Level 3.2, Magnesium Level 1.6L Height (Feet): 5 Height (Inches): 7.00 Weight (Pounds): 145 Alvino Rizo MD Apr 06, 2018 23:37
[2018-04-07] VITALS: BP 146/77
[2018-04-07 04:00] VITALS: BP 147/70
[2018-04-07] MEDS: NovoLOG Insulin Flexpen SUBQ SCH ×4 (06:13→21:00)
[2018-04-07] MEDS: Heparin 5000 units/ml inj SUBQ SCH ×3 (06:18→21:29)
--- NOTE | 2018-04-07 07:40 | NUR ---
HAND-OFF: Report given to Layla Vasquezpatient in stable condition..
[2018-04-07 08:00] VITALS: BP 157/81
[2018-04-07 08:04] LABS: ANION GAP 10 mmol/L (5-15); BLOOD UREA NITROGEN 8 mg/dL (7-18); CALCIUM 9.2 MG/DL (8.5-10.1); CARBON DIOXIDE 24 MMOL/L (21-32); CHLORIDE 106 MMOL/L (98-107); POTASSIUM 3.3 MMOL/L (3.5-5.1); SODIUM 140 MMOL/L (136-145)
--- NOTE | 2018-04-07 09:00 | General Surgery Progress Note ---
General Surgery-Progress Note Subjective Additional Comments no acute events. comfortable. rectal tube with loose stool. abd still distended but stable and non tender Objective Last 24 Hour Vital Signs Date Time Temp Pulse Resp B/P (MAP) Pulse Ox O2 Delivery O2 Flow Rate FiO2 04/07/18 08:00 98.3 81 19 157/81 (106) 98 04/07/18 04:00 98.0 82 20 147/70 (95) 97 04/07/18 00:00 97.5 80 18 146/77 (100) 98 04/06/18 21:43 78 117/76 04/06/18 21:00 Room Air 04/06/18 20:00 98.0 82 18 140/84 (102) 100 04/06/18 16:00 98.1 80 17 144/86 (105) 100 04/06/18 12:00 98.4 80 19 134/87 (103) 100 04/06/18 10:29 81 168/95 04/06/18 10:28 81 168/95 I&O Intake and Output 04/06/18 04/07/18 19:00 07:00 Intake Total 195 ml 1425 ml Output Total 1400 ml 1400 ml Balance -1205 ml 25 ml Intake Oral 120 ml 600 ml IV Total 75 ml 825 ml Output Urine Total 1400 ml 1300 ml Stool Total 100 ml Drains: other Cardiovascular: RSR Respiratory: clear Abdomen: soft, distended, absent bowel sounds Extremities: no cyanosis Laboratory Tests Test 04/07/18 06:13 Sodium Level 140 MMOL/L (136-145) Potassium Level 3.3 MMOL/L (3.5-5.1) L Chloride Level 106 MMOL/L (98-107) Carbon Dioxide Level 24 MMOL/L (21-32) Anion Gap 10 mmol/L (5-15) Blood Urea Nitrogen 8 mg/dL (7-18) Creatinine 1.0 MG/DL (0.55-1.30) Estimat Glomerular Filtration Rate mL/min (>60) Glucose Level 91 MG/DL (74-106) Calcium Level 9.2 MG/DL (8.5-10.1) Plan Problems: (1) Small bowel obstruction Assessment & Plan: 73 year old male with abdominal distention, n/v, abd pain. pain seems to be resolving. still very distended and firm. afebrile, HD stable, no leukocytosis. labs okay KUB noted SBFT noted CT noted - Massively dilated distal colon, without evidence of obstructive pathology. Most likely functional in nature Unusual structure apparently adjacent to the gallbladder fundus. Possibly represents a gallbladder fundal stone, but somewhat tubular appearance with central fat raises the possibility that this represents a focal small bowel nonobstructive intussusception. Ultrasound may be useful to clarify -plan for colonoscopic decompression by GI sunday -IV fluids -labs will follow with serial exams. thank you for this consultation. Izaiah Cantrell Apr 07, 2018 09:00
[2018-04-07] MEDS: Potassium Chloride 40 MEQ in D5W 500ml 550 ML IVPB SCH (09:17)
[2018-04-07] MEDS ORDERED: Tubing IV Secondary IV ONE (09:38)
--- NOTE | 2018-04-07 10:41 | NUR ---
NURSE NOTES: Received report from ZINA Shaffer. Pt in bed, awake, talkative, no complaint of pain, bed in lowest position, call light within reach, no apparent distress noted.
[2018-04-07 12:00] VITALS: BP 128/74
[2018-04-07] MEDS: 1/2NS w/KCl 20mEq 1000ml 1,000 ML IV SCH (12:09)
--- NOTE | 2018-04-07 13:25 | NUR ---
NURSE NOTES: Consent found in chart is incorrect, listed Pedro Alcantar NP as physician to do colonoscopy. Filled out new consent for colonoscopy, pending Sunday04/08/2018. Reviewed Dr. Rizo's note, no mention if pt was not capable of making medical decisions. Assessed the pt, A/O x3, person, place, purpose. Understood what a colonoscopy is and what it involves, able to discuss why he needs colonoscopy. Discussed with Jax Solorzano RN. Obtained consent for colonoscopy from pt.
[2018-04-07] MEDS: cefTRIAXone 1 GM in D5W 55 ML IVPB SCH (14:26)
[2018-04-07 16:00] VITALS: BP 153/80
[2018-04-07] MEDS ORDERED: Nulytely 4L ORAL SCH (16:00)
--- NOTE | 2018-04-07 18:53 | General Progress Note ---
Assessment/Plan Assessment/Plan Assessment - colonic dilation - anemia Recommendation - Clears - GI prep - possible Colonoscopy with decompression Sunday - correct electrolytes Subjective Allergies: Coded Allergies: NO KNOWN ALLERGIES (Verified Allergy, Unknown, 04/02/18) Subjective above noted less distended today on clears Objective Last 24 Hour Vital Signs Date Time Temp Pulse Resp B/P (MAP) Pulse Ox O2 Delivery O2 Flow Rate FiO2 04/07/18 16:00 98.7 78 19 153/80 (104) 98 04/07/18 12:00 98.2 72 19 128/74 (92) 98 04/07/18 09:46 98.3 04/07/18 09:16 81 157/81 04/07/18 09:16 81 157/81 04/07/18 09:00 Room Air 04/07/18 08:00 98.3 81 19 157/81 (106) 98 04/07/18 04:00 98.0 82 20 147/70 (95) 97 04/07/18 00:00 97.5 80 18 146/77 (100) 98 04/06/18 21:43 78 117/76 04/06/18 21:00 Room Air 04/06/18 20:00 98.0 82 18 140/84 (102) 100 Intake and Output 04/06/18 04/07/18 19:00 07:00 Intake Total 195 ml 1425 ml Output Total 1400 ml 1400 ml Balance -1205 ml 25 ml Intake Oral 120 ml 600 ml IV Total 75 ml 825 ml Output Urine Total 1400 ml 1300 ml Stool Total 100 ml Laboratory Tests 04/07/18 06:13: Sodium Level 140, Potassium Level 3.3L, Chloride Level 106, Carbon Dioxide Level 24, Anion Gap 10, Blood Urea Nitrogen 8, Creatinine 1.0, Estimat Glomerular Filtration Rate , Glucose Level 91, Calcium Level 9.2 Height (Feet): 5 Height (Inches): 7.00 Weight (Pounds): 145 Objective WDWN NCAT supple CTA RR abd very distended, tympanitic (+) (R) Arben Haile MD Apr 07, 2018 18:53
--- NOTE | 2018-04-07 19:22 | NUR ---
HAND-OFF: Report given to ZINA Hernadez.
--- NOTE | 2018-04-07 19:30 | NUR ---
NURSE NOTES: RECEIVED PATIENT LYING IN BED, AWAKENED TO NAME, ALERT/ORIENTED X3, ABLE TO EFFECTIVELY VERBALIZE NEEDS. NO SIGNS AND SYMPTOMS OF ACUTE CARDIO RESPIRATORY DISTRESS/SHORTNESS OF BREATH, DENIES CHEST PAIN. PATIENT CONTRACTED BILATERAL LOWER EXTREMITIES, MORE PRONOUNCED ON LEFT LOWER EXTREMITY. BOWEL PREP ONGOING, TOLERATING WELL, RECTAL TUBE DRAINING LIQUID BROWN STOOL. LOZANO CATHETER INTACT/PATENT, DRAINING YELLOW CLOUDY URINE VIA GRAVITY, ANCHORED TO THIGH, DRAINAGE BAG POSITIONED BELOW LEVEL OF WAIST TO PREVENT URINE BACKFLOW. SIDE RAILS UP X3/BED IN LOWEST POSITION FOR SAFETY. CALL LIGHT WITHIN REACH. NAD.
--- NOTE | 2018-04-07 19:44 | Progress Note ---
SUBJECTIVE: This is an elderly man, who is currently in the bed. Abdominal pain is better. Leg pain is also better. He has BM. OBJECTIVE: VITAL SIGNS: Stable. CHEST: Bilaterally clear. CARDIOVASCULAR: Regular rhythm. ABDOMEN: Distended. Decreased bowel sounds. EXTREMITIES: CCE. NEUROLOGICAL: Generalized weakness. ASSESSMENT: 1. Small bowel obstruction. 2. Volvulus. 3. Hypertension. 4. Chronic pain. 5. Neurology, continue antibiotic. 6. Continue bronchodilator treatments. 7. Continue soft diet. 8. The patient is going for colonoscopy on Sunday. Sher Conway M.D. DR: Sagrario JOB#: [id number] CC:
[2018-04-07 20:00] VITALS: BP 157/80
--- NOTE | 2018-04-07 21:39 | General Progress Note ---
Subjective Allergies: Coded Allergies: NO KNOWN ALLERGIES (Verified Allergy, Unknown, 04/02/18) Objective Last 24 Hour Vital Signs Date Time Temp Pulse Resp B/P (MAP) Pulse Ox O2 Delivery O2 Flow Rate FiO2 04/07/18 21:06 75 157/80 04/07/18 20:00 97.9 75 18 157/80 (105) 97 04/07/18 16:00 98.7 78 19 153/80 (104) 98 04/07/18 12:00 98.2 72 19 128/74 (92) 98 04/07/18 09:46 98.3 04/07/18 09:16 81 157/81 04/07/18 09:16 81 157/81 04/07/18 09:00 Room Air 04/07/18 08:00 98.3 81 19 157/81 (106) 98 04/07/18 04:00 98.0 82 20 147/70 (95) 97 04/07/18 00:00 97.5 80 18 146/77 (100) 98 04/06/18 21:43 78 117/76 Intake and Output 04/06/18 04/07/18 18:59 06:59 Intake Total 120 ml 1500 ml Output Total 1400 ml 1400 ml Balance -1280 ml 100 ml Intake Oral 120 ml 600 ml IV Total 900 ml Output Urine Total 1400 ml 1300 ml Stool Total 100 ml Laboratory Tests 04/07/18 06:13: Sodium Level 140, Potassium Level 3.3L, Chloride Level 106, Carbon Dioxide Level 24, Anion Gap 10, Blood Urea Nitrogen 8, Creatinine 1.0, Estimat Glomerular Filtration Rate , Glucose Level 91, Calcium Level 9.2 Height (Feet): 5 Height (Inches): 7.00 Weight (Pounds): 145 Alvino Rizo MD Apr 07, 2018 21:39
[2018-04-08] VITALS: BP 149/78
--- NOTE | 2018-04-08 01:59 | NUR ---
NURSE NOTES: ASLEEP ON ROUNDS, NO SIGNS AND SYMPTOMS OF DISTRESS.
[2018-04-08 04:00] VITALS: BP 154/88
[2018-04-08] MEDS: Heparin 5000 units/ml inj SUBQ SCH ×2 (06:00→14:29)
[2018-04-08] MEDS: NovoLOG Insulin Flexpen SUBQ SCH ×2 (06:15→12:26)
--- NOTE | 2018-04-08 06:17 | NUR ---
NURSE NOTES:RESTED WELL, NO SIGNIFICANT CHANGE OF CONDITION NOTED. LIQUID LIGHT BROWN STOOL NOTED IN RECTAL TUBING, NO PARTICLES. REMAIN NPO PENDING AM PROCEDURE.
[2018-04-08] MEDS: 1/2NS w/KCl 20mEq 1000ml 1,000 ML IV SCH ×2 (06:51)
--- NOTE | 2018-04-08 07:44 | NUR ---
NURSE NOTES: [facility] NOTIFIED KATHARINE CHARGE NURSE, COLONOSCOPY CANCELED, AM NURSE MADE AWARE, PREVIOUS DIET RESUMED.
--- NOTE | 2018-04-08 07:48 | NUR ---
HAND-OFF: Report given to ZINA RUIZ.
--- NOTE | 2018-04-08 07:51 | NUR ---
NURSE NOTES: Received report from Maricarmen. Patient a/o x3 and manzano catheter is patent. No respiratory distress noted. Patient c/o pain on left hip. Will give the medication as ordered. Call light within reach. Will continue to monitor.
[2018-04-08 08:00] VITALS: BP_SYST 164; BP_SYST 172; BP_DIAS 87; BP_DIAS 91
[2018-04-08 08:15] LABS: BASOPHILS % (AUTO) 0.6 % (0.0-2.0); EOSINOPHILS % (AUTO) 3.4 % (0.0-3.0); HEMATOCRIT 36.5 % (42.0-52.0); HEMOGLOBIN 12.3 G/DL (14.2-18.0); LYMPHOCYTES % (AUTO) 31.7 % (20.0-45.0); MEAN CORPUSCULAR VOLUME 84 FL (80-99); MONOCYTES % (AUTO) 6.6 % (1.0-10.0); NEUTROPHILS % (AUTO) 57.8 % (45.0-75.0); PLATELET COUNT 172 K/UL (150-450); RED BLOOD COUNT 4.35 M/UL (4.70-6.10); RED CELL DISTRIBUTION WIDTH 14.9 % (11.6-14.8)
[2018-04-08 08:30] LABS: ANION GAP 11 mmol/L (5-15); BLOOD UREA NITROGEN 6 mg/dL (7-18); CALCIUM 9.4 MG/DL (8.5-10.1); CARBON DIOXIDE 24 MMOL/L (21-32); CHLORIDE 107 MMOL/L (98-107); POTASSIUM 3.5 MMOL/L (3.5-5.1); SODIUM 141 MMOL/L (136-145)
[2018-04-08] MEDS: Potassium Chloride 40 MEQ in D5W 500ml 550 ML IVPB SCH ×2 (08:56→09:42)
--- NOTE | 2018-04-08 11:00 | General Surgery Progress Note ---
General Surgery-Progress Note Subjective Additional Comments improving. comfortable. no complaints. tolerating diet. Objective Last 24 Hour Vital Signs Date Time Temp Pulse Resp B/P (MAP) Pulse Ox O2 Delivery O2 Flow Rate FiO2 04/08/18 09:00 Room Air 04/08/18 08:56 87 164/87 04/08/18 08:56 87 164/87 04/08/18 08:00 97.9 87 20 164/87 (112) 98 04/08/18 04:00 97.1 78 18 154/88 (110) 99 04/08/18 00:00 98.0 72 18 149/78 (101) 97 04/07/18 21:06 75 157/80 04/07/18 21:00 Room Air 04/07/18 20:00 97.9 75 18 157/80 (105) 97 04/07/18 16:00 98.7 78 19 153/80 (104) 98 04/07/18 12:00 98.2 72 19 128/74 (92) 98 I&O Intake and Output 04/07/18 04/08/18 19:00 07:00 Intake Total 800 ml 990 ml Output Total 1650 ml 2700 ml Balance -850 ml -1710 ml Intake Oral 800 ml 240 ml IV Total 750 ml Output Urine Total 1450 ml 1100 ml Stool Total 200 ml 1600 ml Drains: other Cardiovascular: RSR Respiratory: clear Abdomen: soft, distended, present bowel sounds Extremities: no cyanosis, other Laboratory Tests Test 04/08/18 06:04 White Blood Count 4.0 K/UL (4.8-10.8) L Red Blood Count 4.35 M/UL (4.70-6.10) L Hemoglobin 12.3 G/DL (14.2-18.0) L Hematocrit 36.5 % (42.0-52.0) L Mean Corpuscular Volume 84 FL (80-99) Mean Corpuscular Hemoglobin 28.3 PG (27.0-31.0) Mean Corpuscular Hemoglobin Concent 33.8 G/DL (32.0-36.0) Red Cell Distribution Width 14.9 % (11.6-14.8) H Platelet Count 172 K/UL (150-450) Mean Platelet Volume 5.6 FL (6.5-10.1) L Neutrophils (%) (Auto) 57.8 % (45.0-75.0) Lymphocytes (%) (Auto) 31.7 % (20.0-45.0) Monocytes (%) (Auto) 6.6 % (1.0-10.0) Eosinophils (%) (Auto) 3.4 % (0.0-3.0) H Basophils (%) (Auto) 0.6 % (0.0-2.0) Prothrombin Time 10.8 SEC (9.30-11.50) Prothromb Time International Ratio 1.0 (0.9-1.1) Activated Partial Thromboplast Time 25 SEC (23-33) Sodium Level 141 MMOL/L (136-145) Potassium Level 3.5 MMOL/L (3.5-5.1) Chloride Level 107 MMOL/L (98-107) Carbon Dioxide Level 24 MMOL/L (21-32) Anion Gap 11 mmol/L (5-15) Blood Urea Nitrogen 6 mg/dL (7-18) L Creatinine 1.0 MG/DL (0.55-1.30) Estimat Glomerular Filtration Rate mL/min (>60) Glucose Level 87 MG/DL (74-106) Calcium Level 9.4 MG/DL (8.5-10.1) Plan Problems: (1) Small bowel obstruction Assessment & Plan: 73 year old male with abdominal distention, n/v, abd pain. pain seems to be resolving. still very distended and firm. afebrile, HD stable, no leukocytosis. labs okay KUB noted SBFT noted CT noted - Massively dilated distal colon, without evidence of obstructive pathology. Most likely functional in nature Unusual structure apparently adjacent to the gallbladder fundus. Possibly represents a gallbladder fundal stone, but somewhat tubular appearance with central fat raises the possibility that this represents a focal small bowel nonobstructive intussusception. Ultrasound may be useful to clarify -okay to d/c from surgical standpoint with outpatient follow up will follow with serial exams. thank you for this consultation. Izaiah Cantrell Apr 08, 2018 11:00
[2018-04-08 12:00] VITALS: BP 142/74
--- NOTE | 2018-04-08 12:23 | GI Progress Note ---
Assessment/Plan Problems: (1) Colon distention ICD Codes: K63.89 - Other specified diseases of intestine SNOMED: 924481127 (2) Anemia ICD Codes: D64.9 - Anemia, unspecified SNOMED: 821861798 Status: stable Status Narrative Discussed with Dr. Bernard Assessment/Plan Abdominal pelvis CT reviewed >> Massively dilated distal colon, without evidence of obstructive pathology. Most likely functional in nature. No noted small bowel obstruction. Colonic distention resolved, colonoscopy canceled Okay to advance diet and discharge from GI standpoint remove rectal tube electrolyte correction, will adjust IVFs prn transfusions ppi fu labs The patient was seen and examined at bedside and all new and available data was reviewed in the patients chart. I agree with the above findings, impression and plan. (Patient seen earlier today. Signature stamp does not reflect patient encounter time.). - Pineda Bernard MD Subjective Subjective Abdominal distention resolved Denies any abdominal pain States that he had a good bowel movement Objective Last 24 Hour Vital Signs Date Time Temp Pulse Resp B/P (MAP) Pulse Ox O2 Delivery O2 Flow Rate FiO2 04/08/18 09:00 Room Air 04/08/18 08:56 87 164/87 04/08/18 08:56 87 164/87 04/08/18 08:00 97.9 87 20 164/87 (112) 98 04/08/18 04:00 97.1 78 18 154/88 (110) 99 04/08/18 00:00 98.0 72 18 149/78 (101) 97 04/07/18 21:06 75 157/80 04/07/18 21:00 Room Air 04/07/18 20:00 97.9 75 18 157/80 (105) 97 04/07/18 16:00 98.7 78 19 153/80 (104) 98 Intake and Output 04/07/18 04/08/18 19:00 07:00 Intake Total 800 ml 990 ml Output Total 1650 ml 2700 ml Balance -850 ml -1710 ml Intake Oral 800 ml 240 ml IV Total 750 ml Output Urine Total 1450 ml 1100 ml Stool Total 200 ml 1600 ml Laboratory Tests Test 04/08/18 06:04 White Blood Count 4.0 K/UL (4.8-10.8) L Red Blood Count 4.35 M/UL (4.70-6.10) L Hemoglobin 12.3 G/DL (14.2-18.0) L Hematocrit 36.5 % (42.0-52.0) L Mean Corpuscular Volume 84 FL (80-99) Mean Corpuscular Hemoglobin 28.3 PG (27.0-31.0) Mean Corpuscular Hemoglobin Concent 33.8 G/DL (32.0-36.0) Red Cell Distribution Width 14.9 % (11.6-14.8) H Platelet Count 172 K/UL (150-450) Mean Platelet Volume 5.6 FL (6.5-10.1) L Neutrophils (%) (Auto) 57.8 % (45.0-75.0) Lymphocytes (%) (Auto) 31.7 % (20.0-45.0) Monocytes (%) (Auto) 6.6 % (1.0-10.0) Eosinophils (%) (Auto) 3.4 % (0.0-3.0) H Basophils (%) (Auto) 0.6 % (0.0-2.0) Prothrombin Time 10.8 SEC (9.30-11.50) Prothromb Time International Ratio 1.0 (0.9-1.1) Activated Partial Thromboplast Time 25 SEC (23-33) Sodium Level 141 MMOL/L (136-145) Potassium Level 3.5 MMOL/L (3.5-5.1) Chloride Level 107 MMOL/L (98-107) Carbon Dioxide Level 24 MMOL/L (21-32) Anion Gap 11 mmol/L (5-15) Blood Urea Nitrogen 6 mg/dL (7-18) L Creatinine 1.0 MG/DL (0.55-1.30) Estimat Glomerular Filtration Rate mL/min (>60) Glucose Level 87 MG/DL (74-106) Calcium Level 9.4 MG/DL (8.5-10.1) Height (Feet): 5 Height (Inches): 7.00 Weight (Pounds): 161 General Appearance: WD/WN, no apparent distress, alert Cardiovascular: normal rate Respiratory/Chest: normal breath sounds, no respiratory distress Abdominal Exam: normal bowel sounds, non tender, soft Extremities: normal range of motion, non-tender Ciro Alcantar [employer]UFFER Apr 08, 2018 12:23
--- NOTE | 2018-04-08 13:22 | Diagnostic Imaging Report ---
Indication: Abdominal pain Comparison: 04/03/2018 Single view of the abdomen obtained Findings: Moderate distention of the colon again noted. There appears to be less stool burden within the colon since the last exam. IMPRESSION: Somewhat less stool. Moderately distended colon again noted.
--- NOTE | 2018-04-08 13:56 | NUR ---
DISCHARGE PLANNING PATIENT HAS BEEN REFERRED BACK TO: [facility] P:[phone] F:[phone] SPOKE TO JUAN M SHE HAS GIVEN US ROOM# 301-A "ASSISTED"
--- NOTE | 2018-04-08 14:20 | NUR ---
*-* DISCHARGE PLANNED PATIENT IS DISCHARGED TO: [facility] ROOM# 301-A PRISON T:[phone] FOR NURSE TO NURSE REPORT [facility] HAS BEEN ARRANGED FOR [facility] FLOW TEAM MEMBER AT [address] [id number]
[2018-04-08] MEDS: cefTRIAXone 1 GM in D5W 55 ML IVPB SCH (15:11)
--- NOTE | 2018-04-08 15:23 | NUR ---
NURSE NOTES: Report given to Obi at [facility].
[2018-04-08 16:00] VITALS: BP 156/87
[2018-04-08] MEDS ORDERED: Tubing IV Secondary IV ONE (16:38)
--- NOTE | 2018-04-08 16:40 | NUR ---
NURSE NOTES: Removed manzano catheter, rectal tube and IV line. Belongings given to patient. Discharged with ambulance tech in stable condition.
--- NOTE | 2018-04-08 23:45 | Discharge Summary ---
DATE OF ADMISSION: 04/02/2018 HOSPITAL COURSE: This is an elderly male who came with small bowel obstruction and ileus. GI consult was obtained. Small bowel obstruction was resolved. He is clinically doing better, tolerating the diet. Hospital course was otherwise unremarkable. The patient also had seen surgery as well as has seen GI. PHYSICAL EXAMINATION: VITAL SIGNS: Blood pressure 164/87, pulse 87, temperature 97.9. CHEST: Bilaterally clear. CARDIOVASCULAR: Regular rhythm. No gallop. No murmur. ABDOMEN: Soft. Positive bowel sounds. EXTREMITIES: CCE. LABORATORY AND DIAGNOSTIC DATA: White counts are 4000, hemoglobin 12. Sodium 141, potassium 3.5, BUN 6, creatinine 1.0. ASSESSMENT: 1. Volvulus. 2. Diabetes. 3. Hypertension. 4. Generalized weakness. PLAN: 1. We will currently continue current p.o. medications. 2. Continue clonidine, sliding scale, Norvasc. 3. Continue Zofran as needed. 4. Discharge plan to [facility]. Sher Conway M.D. DR: Theo JOB#: [id number] CC:
--- NOTE | 2018-04-09 23:50 | General Progress Note ---
Subjective Allergies: Coded Allergies: NO KNOWN ALLERGIES (Verified Allergy, Unknown, 04/02/18) Objective Intake and Output 04/08/18 04/09/18 19:00 07:00 Intake Total 360 ml Balance 360 ml Intake Oral 360 ml Height (Feet): 5 Height (Inches): 7.00 Weight (Pounds): 161 Alvino Rizo MD Apr 09, 2018 23:50
== END 2018-04-08 16:39 | DRG 389 ==
LOC: 3E 20:35
DX: K56.2 Volvulus (principal); N39.0 Urinary tract infection, site not specified; K63.89 Other specified diseases of intestine; R60.0 Localized edema; E87.6 Hypokalemia; Z86.73 Personal history of transient ischemic attack (TIA), and cerebral infarction without residual deficits; I10 Essential (primary) hypertension; K52.9 Noninfective gastroenteritis and colitis, unspecified; D64.9 Anemia, unspecified; E11.9 Type 2 diabetes mellitus without complications; M19.90 Unspecified osteoarthritis, unspecified site; G89.29 Other chronic pain; R53.1 Weakness
CPT/HCPCS: 36415; 74018; 74176; 74250; 80048; 80053; 81001; 82962; 83036; 83690; 83735; 84100; 85025; 85610; 85730; 87081; 87086; 87181; 93970; J1815; J8499